=== PATIENT | male | born 1960 | race Caucasian/White ===

== ENCOUNTER 2018-09-15 08:31 | Outpatient (REF) | payer BC, SELFPAY ==
[2018-09-15 14:12] LABS: Anion Gap 13.1 mmol/L (3-11); BUN 15 mg/dL (7-18); CO2 23.9 mmol/L (21.0-32.0); CREATININE 0.87 mg/dL (0.70-1.30); Calcium 9.2 mg/dL (8.5-10.1); Chloride 101 mmol/L (98-107); Glucose 114 mg/dL (70-100); Potassium 4.1 mmol/L (3.5-5.1); Sodium 138 mmol/L (136-145); Vitamin B12 426 pg/mL (193-986)
== END 2018-09-15 08:51 ==
LOC: NCHCN 08:31
PROVIDERS: PCP Family Medicine; Visit Provider Family Medicine
DX: I10 Essential (primary) hypertension (principal); D75.89 Other specified diseases of blood and blood-forming organs
CPT/HCPCS: 80048; 82607

== ENCOUNTER 2019-03-27 15:38 | Inpatient (IN) | payer BC, SELFPAY ==
[2019-03-27 15:41] VITALS: BP 130/68; PULSE 83; RESP 16; TEMP 37.1; O2SAT 100
--- NOTE | 2019-03-27 16:10 | ED.GENADUL_ITS ---
Discharge Plan Disposition Patient Disposition: [facility] Condition: Good Discharge Details Chief Complaint: Cellulitis Clinical Impression: Olecranon bursitis, right elbow, Cellulitis of right elbow Admit Date/Time: 03/27/19 17:37 Admit Provider: Reece Bagley Attending Provider: Reece Bagley Primary Care Provider: Severo King ED Provider: Isai Field Discharge Data Discharge Date/Time-TO BE ENTERED AT DEPARTURE: 03/27/19 17:58 Medical Decision Making This is a 59-year-old male who presents today for swelling redness and pain in his right elbow. 2 weeks ago the patient fell and hit his right elbow, he had a mild scrape/abrasion at that time, but his symptoms were otherwise notably unremarkable. 4 to 5 days ago he developed redness and drainage at the elbow itself where the scrape was before, he was initially given Keflex and then with no improvement from this he was switched to clindamycin. He has been on this for 2 days and has had notable worsening of his symptoms, including wor sening swelling redness and drainage. He has had a fever for the last 3 days. Pain is present with movement. Physical exam demonstrates notably edematous elbow, but certainly no significant fluctuance. I suspect that the patient initially had olecranon bursitis, which is now transitioned into a mild to moderate cellulitis. Currently he is afebrile and heart rate is normal, he does not show demonstration of significant septic joint. However with the notable spreading of the redness and worsening even with antibiotics I do feel that he could certainly transition to this point fairly quickly. Feel he demonstrates failed outpatient therapy and demonstrates medical indication for inpatient IV management. We will get an x-ray to rule out atypical osteo-versus fracture. We will get laboratory work-up start vancomycin get fluids. Of note patient was sent in by Dr. kenney. Hospitalist has been contacted already by Dr. kenney however it was requested that the patient be evaluated here in the ED first. I feel that this is very reasonable. We will contact the hospitalist and orthopedics once her work-up is complete. 6:08 PM The patient continues to remain stable here in the ED. Laboratory work-up shows a normal white count, ESR is notably elevated at 97, CRP is also notably elevated at 12.6. He remains afebrile here in the ED though. Vancomycin has been going. X-ray shows no acute process however there is a atypical linear opacity seems to be stemming from the joint of the proximal ulna. No evidence of periosteal disruption though. Virtual radiology reads no acute fracture. Portable limited bedside ultrasound demonstrates no evidence of significant fluid pocket that could easily be assessed or drained at this time. We will hold off on any aspiration at this time. I feel the patient likely had initial olecranon bursitis, which she either secondary to trauma or other superficial small infection has now led to both an infected olecranon bursitis, in conjunc tion with a superficial notable cellulitis. Although he is not currently demonstrating evidence of a purely septic joint, I do feel that he requires admission and IV antibiotics with his notable failed outpatient therapy. Did contact the orthopedic surgeon Dr. Landeros, discussed the case and plan with him. He agrees with the current assessment and plan. Did contact the hospitalist and discussed the case with Dr. Bagley, he agrees the assessment and plan. I have extensively reviewed the treatment plan with the patient. I have addressed all patient concerns at this time. I have also discussed the plan with the admitting physician and they agree with the current assessment and plan and have agreed to assume responsibility for the patient. All parties demonstrate verbal understanding and agreement with our assessment and plan at this time. FINDINGS: Bones/joints: Normal. Soft tissues: Dorsal soft tissue swelling. IMPRESSION: Dorsal soft tissue swelling. Dictated and Authenticated by: Homero Rhoades MD. Ordering:JULISSA Alex MD HPI General Date/Time Provider Initiated Documentation: 03/27/19 15:51 . HPI Narrative: This is a 5-year-old male with past medical history of hypertension, who presents today for evaluation of right elbow pain swelling and fever. 2 weeks ago the patient slipped, fell, and hit his right elbow. He did have a mild scrape on his elbow at that time, and did develop very minimal swelling, however there was no other significant abnormalities and the symptoms are notably benign. However 4 to 5 days ago the patient developed redness, increased swelling and mild drainage which she describes as initially yellow, wh ich then developed into a milky yellow substance. He went to the local [facility], where he was initially prescribed Keflex, and reassess within 48 hours with no improvement and then transitioned to clindamycin. He has been on this for 2 days now and notes continued worsening of the symptoms. He has worsening redness swelling and pain. Additionally he has continued drainage. Patient also has had a fever for the last 3 days. His temperature has ranged from 100-102. It is improved with NSAIDs. Patient denies any history of diabetes, previous illness like this, or other complaint. Pain is rated worse with movement. Improved by nothing. Related Data Home Medications Medication Instructions Recorded Confirmed amlodipine 5 mg PO DAILY tab-cap 11/06/13 03/27/19 epinephrine 0.3 mg IM PRN PRN 11/06/13 03/27/19 multivitamin [Multi Vitamin Daily] 1 ea PO DAILY 11/06/13 03/27/19 losartan 50 mg-hydrochlorothiazide 1 tab PO DAILY 07/25/18 03/27/19 12.5 mg tablet acamprosate 333 mg tablet,delayed 333 mg PO TID 03/14/19 03/27/19 release clindamycin HCl 450 mg PO TID 03/27/19 03/27/19 ibuprofen [IBU-200] 400 mg PO Q6H PRN 03/27/19 03/27/19 Allergies Allergy/AdvReac Type Severity Reaction Status Date / Time JOSE Inhibitors Allergy Mild unknown Verified 03/27/19 15:49 BEE STINGS Allergy Severe Anaphylaxsi Uncoded 03/27/19 15:49 s General Stated Complaint: Cellulitis ARGENIS: 3 Review of Systems All systems reviewed & are unremarkable except as noted in HPI and below PFSH Social History Smoking/Tobacco Use Status: Never Alcohol Intake: former Drug use: Never Do you feel safe at home: Yes Do you feel safe in your relationship?: Yes Exam Narrative Exam Narrative: 1.Const: Well-nourished, Well-developed, appearing stated age 2.Eyes: PERRL, no conjunctival injection, and symmetrical lids. 3.ENT: Atraumatic external nose and ears. Moist MM. Neck: Symmetric, trachea midline, No thyromegaly. 4.CVS: +S1/S2, No murmurs or gallops. Peripheral pulses 2+ and equal in all extremities. Brisk capillary refill in all extremities. 5.RESP: Unlabored respiratory effort. Clear to auscultation bilaterally. No wheezes rales or rhonchi 6.GI: Soft, Nontender/Nondistended, No hepatosplenomegaly. No guarding or jameson ound. 7.MSK: Right upper extremity demonstrates notably swollen and edematous right elbow, minimal fluctuance, more notable edematous tissue. Notable redness around the elbow, especially on the posterior dorsal aspect. The erythema does come more circumferentially, and travels down his forearm and slightly proximally up his humerus roughly 1 to 2 inches from the elbow. There is evidence of an actively draining eschar over the elbow itself. Mild pain with movement, but not pain out of proportion. Radial pulse was 2 bilaterally, brisk capillary refill, normal sensation throughout. 8.Skin: Please see musculoskeletal. 9.Neuro: database marketing manager II-XII grossly intact. Sensation grossly intact, no focal neurologic deficits. 10.Psych: (AAO) x3. Appropriate mood and affect Course Vital Signs Vital signs: Vital Signs Temperature 37.1 C 03/27/19 15:41 Pulse 83 03/27/19 15:41 Respiratory Rate 16 03/27/19 15:41 Blood Pressure 130/68 03/27/19 15:41 Pulse Oximetry 100 03/27/19 15:41 Temperature 37.1 C 03/27/19 15:41 Temperature Source Oral 03/27/19 15:41 Pulse 83 03/27/19 15:41 Respiratory Rate 16 03/27/19 15:41 Respiratory Effort Non-Labored 03/27/19 15:47 Blood Pressure 130/68 03/27/19 15:41 Blood Pressure Position Sitting 03/27/19 15:41 Pulse Oximetry 100 03/27/19 15:41 Oxygen Delivery Method Room Air 03/27/19 15:41 Oxygen Flow Rate 0 03/27/19 15:41 Lab/Test Results Lab/Test Results: 03/27/19 15:51 Blood Blood Culture - Pending 03/27/19 15:51 Blood Blood Culture - Pending
--- NOTE | 2019-03-27 16:35 | DI.RAD_ITS ---
EXAM: XR ELBOW RT COMPLETE INDICATION: fall, swelling, cellulitis, r/o fracture. COMPARISON: No exams were available for comparison TECHNIQUE: 2D digital imaging was performed. FINDINGS: On the lateral view there is a lucency seen in the anterior aspect of the radial head. This may repr esent a nondisplaced fracture. No other fracture or dislocation is seen. There is soft tissue swell ing about the elbow particularly posteriorly. IMPRESSION: Short lucency in the cortex of the radial head seen on the lateral view. This may represent a nondis placed fracture. Follow-up recommended. The findings were discussed with Dr. Villalobos of the emergency department on 03/28/2019
[2019-03-27 16:36] LABS: Abs Immature Grans 0.03 k/cumm (0.0-0.09); Absolute Basophil Count 0.02 k/cumm (0.0-0.2); Absolute Eosinophil Count 0.12 k/cumm (0.0-0.7); Absolute Monocyte Count 0.92 k/cumm (0.11-0.7); Basophils % 0.2; Eosinophils % 1.3; HCT 37.2 % (40.0-50.0); HGB 12.4 g/dL (13.5-17.5); Immature Grans % 0.3; Lymphocytes % 17.2; Mean Corp. HGB Concentration 33.3 g/dL (32.0-36.0); Mean Corpuscular Hemoglobin 32.4 pg (27.0-33.0); Mean Corpuscular Volume 97.1 fL (80-95); Mean Platelet Volume 10.4 fL (8.0-11.0); Monocytes % 9.9; Neutrophils % 71.1; Platelet Count 304 x1000/uL (130-400); RBC 3.83 m/cumm (4.50-6.00); RBC Distribution Width 12.2 % (11.8-14.1); White Blood Cell Count 9.29 k/cumm (4.4-10.8)
[2019-03-27] MEDS: VANCOMYCIN 2,000 MG in Normal Saline 500 ML 333.3333 MG IVPB (16:59)
[2019-03-27] MEDS: Normal Saline 1,000 ML 150 ML IV (16:59)
[2019-03-27 17:06] LABS: ALT 39 U/L (16-63); AST 22 U/L (15-37); Albumin 3.5 g/dL (3.4-5.0); Alkaline Phosphatase 62 U/L (46-116); Anion Gap 8.5 mmol/L (3-11); BUN 9 mg/dL (7-18); Bilirubin, Total 0.7 mg/dL (0.2-1.0); C-Reactive Protein 12.63 mg/dL (0.0-0.3); CO2 28.5 mmol/L (21.0-32.0); CREATININE 0.77 mg/dL (0.70-1.30); Calcium 9.1 mg/dL (8.5-10.1); Chloride 100 mmol/L (98-107); Glucose 84 mg/dL (74-106); Potassium 3.4 mmol/L (3.5-5.1); Sodium 137 mmol/L (136-145); Total Protein 7.9 g/dL (6.4-8.2)
--- NOTE | 2019-03-27 17:21 | DI.VRAD_ITS ---
PROCEDURE INFORMATION: Exam: XR Right Elbow Exam date and time: 03/27/2019 4:38 PM Age: 59 years old Clinical indication: Injury or trauma; Fall; Initial encounter; Blunt trauma (contusions or hematomas; Elbow; Right TECHNIQUE: Imaging protocol: XR Right elbow. Views: 3 or more views. COMPARISON: No relevant prior studies available. FINDINGS: Bones/joints: Normal. Soft tissues: Dorsal soft tissue swelling. IMPRESSION: Dorsal soft tissue swelling. Dictated and Authenticated by: Homero hRoades MD. Ordering:JULISSA Alex MD
[2019-03-27 17:37] LABS: ESR 97 mm/hr (1-20)
[2019-03-27 17:58] VITALS: BP 136/73; PULSE 90; RESP 16; TEMP 36.5; O2SAT 100
[2019-03-27 18:02] VITALS: BP 136/76; PULSE 82; RESP 16; TEMP 36.7; O2SAT 97
[2019-03-27] MEDS: Potassium Chloride 20 MEQ TABCR 40 MEQ PO (18:36)
[2019-03-27] MEDS: Enoxaparin 40 MG/0.4 ML SYR SC (18:57)
[2019-03-27 20:15] VITALS: BP 123/70; PULSE 82; RESP 16; TEMP 37.1; O2SAT 96
--- NOTE | 2019-03-27 20:34 | HPE_ITS ---
Date of service: 03/27/19 Time of Service: 20:34 Assessment and Plan Assessment and plan (1) Cellulitis of right elbow: Status: Acute Assessment and plan: Continue oxacillin for both staph and strep coverage. Continue NSAID analgesic for pain. Modify antibiotic choices based on wound and blood cultures. Consult with orthopedic surgery in the morning for probable incision and drainage (2) Infected olecranon bursa: Status: Suspected Assessment and plan: As above Qualifiers: Laterality: right Qualified Code(s): M71.121 - Other infective bursitis, right elbow (3) Hypertension: Status: Chronic Assessment and plan: Continue home blood pressure medications including amlodipine and losartan with HCTZ. Replace his potassium with oral supplementation. Qualifiers: Hypertension type: essential hypertension Qualified Code(s): I10 - Essential (primary) hypertension History of Present Illness History of Present Illness Chief Complaint: Cellulitis right elbow Narrative: 59-year-old male with a history of hypertension presents the emergency department with pain and swelling and redness and drainage from the right elbow. Patient states that he had a fall about 2 weeks ago landed on asphalt causing an abrasion over his right elbow. He washed the wound and dressed it with topical antibiotic and Band-Aids. Beginning last March he noticed redness and swelling over the elbow and by Sunday, March 24, 2019 he was having an area of drainage of pus over the olecranon surface of the right el bow. On Wednesday when there was continued pain and swelling he went to the [facility] in [facility] where he was prescribed Keflex and told to return on March 26 for follow-up. At that time they gave him a course of IV antibiotics and put him on oral clindamycin and told him that if he was not better by Wednesday, March 27, 2019 he should either re-present to the [facility] or see his primary care doctor or go to the emergency room. Today he called Dr. King's office and was seen and sent to the emergency department. He has had fever and chills over Wednesday and Wednesday night into Wednesday morning. He says today his temperature was only up to 100 degrees and he said no chills today. He was seen in the emergency room by Dr. Field who did a work-up to include routine lab work including a CBC that not show a leukocytosis. White count was 9290. CRP is elevated at 12.63. ESR is elevated at 97. Rest of his chemistry was unremarkable except for potassium of 3.4 however the patient takes losartan HCTZ for his hypertension. X-ray of his right elbow demonstrates soft tissue swelling over the dorsum of the elbow with no bony abnormalities. Dr. Field obtain blood cultures and a superficial wound culture from the drainage. Patient has notable swelling and erythema around the elbow as well as the forearm and edema of his right hand. Dr. Field did a portable ultrasound and did not find any pocket of pus. His initial impression is that the patient had an olecranon bursitis which then became infected due to trauma. He discussed case with Dr. Landeros, orthopedic surgeon digital content coordinator. Patient is now admitted to the hospital for IV antibiotics and orthopedic consultation. After blood cultures and wound culture were obtained patient was started on vancomycin. I have switched him to oxacillin. Review of Systems Constitutional Constitutional: Reports chills and Reports fever(s) Eyes Eyes: Reports system reviewed and no additional complaints, except as docu ENT Ears, Nose, Mouth, and Throat: Reports system reviewed and no additional complaints, except as docu Cardiovascular Cardiovascular: Reports system reviewed and no additional complaints, except as docu Respiratory Respiratory: Reports system reviewed and no additional complaints, except as docu Gastrointestinal Gastrointestinal: Reports system reviewed and no additional complaints, except as docu Genitourinary Genitourinary: Reports system reviewed and no additional complaints, except as docu Musculoskeletal Musculoskeletal: Reports as per HPI Integumentary/Breasts Skin/Breast: Reports as per HPI Neurologic Neurologic: Reports system reviewed and no additional complaints, except as docu Psychiatric Psychiatric: Reports system reviewed and no additional complaints, except as docu Endocrine Endocrine: Reports system reviewed and no additional complaints, except as docu Hematologic/Lymphatic Hematologic/Lymphatic: Reports system reviewed and no additional complaints, except as docu Allergic/Immunologic Allergic/Immunologic: Reports system reviewed and no additional complaints, except as docu [facility] Medical History (Updated 03/27/19 @ 22:03 by Reece Bagley) Hypertension (Chronic) Iliotibial band syndrome, left leg (Acute) Osteoarthritis (Chronic) Trochanteric bursitis, left hip (Acute) Injection: 07/25/2018 Surgical History (Updated 03/27/19 @ 21:03 by Reece Bagley) H/O arthroscopy of left knee (Acute ~2015) torn meniscus; [facility] History of total left hip arthroplasty (Acute ~02/2017) [facility], [facility] Family History (Updated 03/27/19 @ 21:09 by Reece Bagley) Father Heart disease probable HI; no autopsy done Mother Breast cancer Sister Chronic kidney disease Social History (Updated 03/27/19 @ 21:07 by Reece Bagley) Smoking/Tobacco Use Status: Former Tobacco Use Quit Date: 04/05/94 Tobacco: How many years used: 20 Alcohol Intake: former Year quit: 2018 Drug use: Never Household members: spouse Number of Children: 2 Education Level: college Details: BA current occupation: public administration; [employer] What is your relationship status?: Panel score (0-1 are the most socially isolated patients): 1 Do you feel safe at home: Yes Do you feel safe in your relationship?: Yes Meds Home Medications and Allergies Home Medications Medication Instructions Recorded Confirmed Type amlodipine 5 mg PO DAILY tab-cap 11/06/13 03/27/19 History epinephrine 0.3 mg IM PRN PRN 11/06/13 03/27/19 History multivitamin [Multi Vitamin Daily] 1 ea PO DAILY 11/06/13 03/27/19 History losartan 50 mg-hydrochlorothiazide 1 tab PO DAILY 07/25/18 03/27/19 History 12.5 mg tablet acamprosate 333 mg tablet,delayed 333 mg PO TID 03/14/19 03/27/19 History release clindamycin HCl 450 mg PO TID 03/27/19 03/27/19 History ibuprofen [IBU-200] 400 mg PO Q6H PRN 03/27/19 03/27/19 History Allergies Allergy/AdvReac Type Severity Reaction Status Date / Time JOSE Inhibitors AdvReac Mild cough Verified 03/27/19 20:59 BEE STINGS Allergy Severe Anaphylaxsi Uncoded 03/27/19 15:49 s Exam Narrative Exam Narrative: Middle-aged male in no acute distress sitting up in the bed in semi-singh position. HEENT is unremarkable neck is supple without JVD normal carotid pulses no bruits Lungs are clear to auscultation. Heart is regular rate and rhythm without murmur rub or gallop. Abdomen soft and nontender without palpable masses organomegaly or bruits. Extremities right elbow is erythematous with an area of fluctuance over the olecranon surface. There is an abrasion with drainage of pus from this. He has some slight erythema and swelling just above the elbow. There is significant edema of the forearm and right hand. There is erythema extending just below the elbow. Neurovascular exam is intact with normal radial and ulnar pulses and normal sensation to light touch over the fingers and thumb. Results Imaging Additional studies: PROCEDURE INFORMATION: Exam: XR Right Elbow Exam date and time: 03/27/2019 4:38 PM FINDINGS: Bones/joints: Normal. Soft tissues: Dorsal soft tissue swelling. IMPRESSION: Dorsal soft tissue swelling. Dictated and Authenticated by: Homero Rhoades MD. Labs Result diagrams: 03/27/19 16:25 03/27/19 16:25 Labs: Laboratory Results - last 24 hr 03/27/19 03/27/19 16:25 16:25 WBC 9.29 RBC 3.83 L Hgb 12.4 L Hct 37.2 L MCV 97.1 H MCH 32.4 MCHC 33.3 RDW 12.2 Plt Count 304 MPV 10.4 Immature Gran % 0.3 Neutrophils % 71.1 Lymphocytes % 17.2 Monocytes % 9.9 Eosinophils % 1.3 Basophils % 0.2 Absolute Neutrophils 6.60 Absolute Lymphocytes 1.60 Absolute Monocytes 0.92 H Absolute Eosinophils 0.12 Absolute Basophils 0.02 ESR 97 H Sodium 137 Potassium 3.4 L Chloride 100 Carbon Dioxide 28.5 Anion Gap 8.5 BUN 9 Creatinine 0.77 Estimated GFR/1.73 m2 >= 60.00 Glucose 84 Calcium 9.1 Total Bilirubin 0.7 AST 22 ALT 39 Alkaline Phosphatase 62 C-Reactive Protein 12.63 H Total Protein 7.9 Albumin 3.5 Last Vital Signs Temp 36.7 C 03/27/19 18:02 Pulse 82 03/27/19 18:02 Resp 16 03/27/19 18:02 BP 136/76 03/27/19 18:02 Pulse Ox 97 03/27/19 18:02
[2019-03-27] MEDS: Acamprosate 333 MG TABCR PO (20:48)
[2019-03-27 23:30] VITALS: BP 113/68; PULSE 79; RESP 16; TEMP 36.8; O2SAT 97
[2019-03-28 06:53] LABS: Abs Immature Grans 0.02 k/cumm (0.0-0.09); Absolute Basophil Count 0.03 k/cumm (0.0-0.2); Absolute Eosinophil Count 0.25 k/cumm (0.0-0.7); Absolute Lymphocyte Count 1.36 k/cumm (1.2-3.4); Absolute Monocyte Count 0.63 k/cumm (0.11-0.7); Absolute Neutrophil Count 3.39 k/cumm (1.2-6.7); Basophils % 0.5; Eosinophils % 4.4; HCT 36.7 % (40.0-50.0); HGB 12.1 g/dL (13.5-17.5); Immature Grans % 0.4; Lymphocytes % 23.9; Mean Corpuscular Hemoglobin 32.4 pg (27.0-33.0); Mean Corpuscular Volume 98.1 fL (80-95); Mean Platelet Volume 10.4 fL (8.0-11.0); Monocytes % 11.1; Neutrophils % 59.7; Platelet Count 301 x1000/uL (130-400); RBC 3.74 m/cumm (4.50-6.00); RBC Distribution Width 12.3 % (11.8-14.1); White Blood Cell Count 5.68 k/cumm (4.4-10.8)
[2019-03-28 07:05] LABS: Anion Gap 7.9 mmol/L (3-11); BUN 7 mg/dL (7-18); C-Reactive Protein 8.77 mg/dL (0.0-0.3); CO2 26.1 mmol/L (21.0-32.0); CREATININE 0.75 mg/dL (0.70-1.30); Calcium 8.7 mg/dL (8.5-10.1); Chloride 106 mmol/L (98-107); Glucose 95 mg/dL (74-106); Potassium 4.1 mmol/L (3.5-5.1); Sodium 140 mmol/L (136-145)
[2019-03-28] MEDS: Normal Saline Flush 10 ML SYR ×2 (08:31→12:26)
[2019-03-28] MEDS: Losartan 50 MG TAB PO (08:31)
[2019-03-28] MEDS: hydroCHLOROthiazide 12.5 MG TAB PO (08:31)
[2019-03-28] MEDS: Multivitamin TAB 1 TAB PO (08:31)
[2019-03-28] MEDS: amLODIPine 5 MG TAB PO (08:32)
[2019-03-28] MEDS: Acamprosate 333 MG TABCR PO ×3 (08:32→20:18)
[2019-03-28] MEDS: Potassium Chloride 20 MEQ TABCR PO (08:32)
[2019-03-28 08:48] LABS: Creatine Kinase 90 U/L (39-308)
[2019-03-28 08:54] LABS: ESR 88 mm/hr (1-20)
[2019-03-28 08:55] VITALS: BP 144/79; PULSE 75; RESP 20; TEMP 36.6; O2SAT 99
[2019-03-28 08:58] LABS: Procalcitonin < 0.1 ng/mL
--- NOTE | 2019-03-28 10:31 | W.ORTHOCONSU ---
Date of service: 03/28/19 Time of Service: 10:31 History of Present Illness History of Present Illness Chief Complaint: Painful,swollen, draining R elbow Narrative: There is a 59-year-old white male with no major medical problems who presents with a painful draining swollen right elbow. He was admitted to the emergency room last night. His history was 2 weeks ago he had a fall on the point of his right elbow with an abrasion over the tip of his olecranon. Other than some minor soreness he had no problems until approximately 5 days ago. And redness over his olecranon bursa on the right. Shortly thereafter it began draining. He went to the [facility] in [place] on 03/23/2019 for evaluation. He was started on Keflex and told to return within 48 hours if he does not improve. He did not improve and went back to the [facility] where he received IV antibiotics followed by oral clindamycin. He felt the swelling was getting worse and he was getting some streaking in his forearm. He therefore went to his PCP yesterday was sent to the emergency room. Patient was evaluated emergency room and felt to have an infected olecranon bursa with cellulitis of the right elbow and arm. I was called by the ER physician Dr. Field for my opinion over the phone. I agree with his treatment plan of admission with IV vancomycin. He was admitted by Dr. Bagley who switched him to oxacillin 2 g every 4 hours IV. I was formally consulted by Dr. Mcguire this morning, in anticipation of having to take this patient to the OR for an I&D. Mr. Tillman says he is feeling much better today. Pain is really minimal. He has had some drainage from the point of his elbow. He feels a swelling in the forearm has decreased significantly. Denies any chills or fevers. Consults Consult date: 03/28/19 Requesting physician: Velvet Mcguire Assessment and Plan Assessment and plan (1) Infected olecranon bursa: Status: Suspected Assessment and plan: Assessment: Infected olecranon bursa on the right that has shown a dramatic and rapid response to IV antibiotics. Confusion arises because I am not sure whether the response was to the IV vancomycin in the emergency room or the 2 doses of IV oxacillin he received subsequently. His bursa is already draining and therefore decompressed. I do not see any surgical indication for formal I&D at this time. I have discussed this with Dr. Mcguire and we decided to continue with IV oxacillin and hold off on restarting vancomycin for now. Should he deteriorate he may have to go back on IV vancomycin. Also if blood cultures were positive for MRSA would have to switch to vancomycin. Basing treatment on culture of the drainage is sketchy at best because of the reported unreliability of these cultures. Would rather go by his clinical response to treatment. I think if he continues to show improvement through tomorrow could consider sending him home on oral dicloxacillin as further treatment. Would probably need 10 days of additional oral treatment. Plan: Continue on IV oxacillin 2 g every 4 hours. If he continues to improve through tomorrow could consider sending him home on p.o. dicloxacillin for 10 days. I would recommend 1 g p.o. every 6 hours for 10 days. If his condition should deteriorate, would recommend putting him back on vancomycin and reconsulting orthopedics for possible I&D. If his blood cultures are positive for MRSA, would also recommend switching back to vancomycin. Thanks for the consult. Qualifiers: Laterality: right Qualified Code(s): M71.121 - Other infective bursitis, right elbow [facility] Medical History (Updated 03/27/19 @ 22:03 by Reece Bagley) Hypertension (Chronic) Iliotibial band syndrome, left leg (Acute) Osteoarthritis (Chronic) Trochanteric bursitis, left hip (Acute) Injection: 07/25/2018 Surgical History (Updated 03/27/19 @ 21:03 by Reece Bagley) H/O arthroscopy of left knee (Acute ~2015) torn meniscus; [facility] History of total left hip [place] [facility] [place] [facility] Family History (Updated 03/27/19 @ 21:09 by Reece Bagley) Father Heart disease probable [place]; no autopsy done Mother Breast cancer Sister Chronic kidney disease Social History (Updated 03/27/19 @ 21:07 by Reece Bagley) Smoking/Tobacco Use Status: Former Tobacco Use Quit Date: 04/05/94 Tobacco: How many years used: 20 Alcohol Intake: former Year quit: 2018 Drug use: Never Household members: spouse Number of Children: 2 Education Level: college Details: BA current occupation: public administration; [employer] What is your relationship status?: Panel score (0-1 are the most socially isolated patients): 1 Do you feel safe at home: Yes Do you feel safe in your relationship?: Yes Exam Narrative Exam Narrative: Today demonstrates full flexion and extension of the right elbow along with full pronation and supination actively without pain. When he approaches end range flexion a drop or 2 of samantha pus is expressed from a break in the skin at the point of the elbow. The olecranon bursa is mildly swollen. It is erythematous. There is no streaking in the right upper extremity. Forearm is not swollen. Neurovascular examination of the right hand is completely normal today. He has some mild local discomfort with palpation over the swollen olecranon bursa. AP lateral oblique x-rays of the right elbow are reviewed. I do not see any fractures. No posterior fat-pad sign is seen. No evidence of osteomyelitis. His CRP is dropped from 12.63 yesterday afternoon to 8.77 this morning. His white blood cell count is decreased from 9290 yesterday afternoon to 5680 this morning. Polymorphonucleocytes have dropped from 71% to 60%. Even the ESR has dropped from 97 mm/h to 88 mm/h. Procalcitonin was normal. He has remained afebrile throughout his hospital stay from 2 PM yesterday to 9 AM today. Blood cultures are pending. Culture of the drainage shows numerous gram-positive cocci. Results Last Vital Signs Temp 36.6 C 03/28/19 08:55 Pulse 75 03/28/19 08:55 Resp 20 03/28/19 08:55 BP 144/79 H 03/28/19 08:55 Pulse Ox 99 03/28/19 08:55 Labs Result diagrams: 03/28/19 06:30 03/28/19 06:30 Labs: Laboratory Results - last 24 hr 03/27/19 03/27/19 03/27/19 16:25 16:25 20:20 WBC 9.29 RBC 3.83 L Hgb 12.4 L Hct 37.2 L MCV 97.1 H MCH 32.4 MCHC 33.3 RDW 12.2 Plt Count 304 MPV 10.4 Immature Gran % 0.3 Neutrophils % 71.1 Lymphocytes % 17.2 Monocytes % 9.9 Eosinophils % 1.3 Basophils % 0.2 Absolute Neutrophils 6.60 Absolute Lymphocytes 1.60 Absolute Monocytes 0.92 H Absolute Eosinophils 0.12 Absolute Basophils 0.02 ESR 97 H Sodium 137 Potassium 3.4 L Chloride 100 Carbon Dioxide 28.5 Anion Gap 8.5 BUN 9 Creatinine 0.77 Estimated GFR/1.73 m2 >= 60.00 Glucose 84 Calcium 9.1 Magnesium 2.0 Total Bilirubin 0.7 AST 22 ALT 39 Alkaline Phosphatase 62 Creatine Kinase C-Reactive Protein 12.63 H Total Protein 7.9 Albumin 3.5 Procalcitonin 03/28/19 03/28/19 03/28/19 06:30 06:30 06:30 WBC 5.68 D RBC 3.74 L Hgb 12.1 L Hct 36.7 L MCV 98.1 H MCH 32.4 MCHC 33.0 RDW 12.3 Plt Count 301 MPV 10.4 Immature Gran % 0.4 Neutrophils % 59.7 Lymphocytes % 23.9 Monocytes % 11.1 Eosinophils % 4.4 Basophils % 0.5 Absolute Neutrophils 3.39 Absolute Lymphocytes 1.36 Absolute Monocytes 0.63 Absolute Eosinophils 0.25 Absolute Basophils 0.03 ESR 88 H Sodium 140 Potassium 4.1 D Chloride 106 Carbon Dioxide 26.1 Anion Gap 7.9 BUN 7 Creatinine 0.75 Estimated GFR/1.73 m2 >= 60.00 Glucose 95 Calcium 8.7 Magnesium Total Bilirubin AST ALT Alkaline Phosphatase Creatine Kinase C-Reactive Protein 8.77 H Total Protein Albumin Procalcitonin < 0.1 03/28/19 06:30 WBC RBC Hgb Hct MCV MCH MCHC RDW Plt Count MPV Immature Gran % Neutrophils % Lymphocytes % Monocytes % Eosinophils % Basophils % Absolute Neutrophils Absolute Lymphocytes Absolute Monocytes Absolute Eosinophils Absolute Basophils ESR Sodium Potassium Chloride Carbon Dioxide Anion Gap BUN Creatinine Estimated GFR/1.73 m2 Glucose Calcium Magnesium Total Bilirubin AST ALT Alkaline Phosphatase Creatine Kinase 90 C-Reactive Protein Total Protein Albumin Procalcitonin
--- NOTE | 2019-03-28 10:53 | W.NUTCONSULT ---
Date of service: 03/28/19 Time of Service: 10:53 Nutritional Consult ASSESSMENT: 59 year old male with infected olecranon. PMH: OA, HTN, alcohol use, impaired fasting glucose. Following regular meal plan with adequate intake. BMI indicates class 1 obesity. Not considered at nutritional risk at this time. MONITORING AND EVALUATION: will monitor weight and po intake trends. Time Spent in Nutritional Counseling and Treatment: 0 time spent face to face
--- NOTE | 2019-03-28 11:02 | PHARADMIT ---
Addendum entered by Phylicia Fink 03/30/19 16:08: Pharmacy Note Subjective continues to improve Objective VS okay labs okay Assessment oxacillin continues (day 4 starts this evening) no med changes Plan possible discharge tomorrow Original Note: Admission Pharmacy Clinical Review CELLULITIS RIGHT ELBOW Code Status Full Code Current Weight Wgt-102.8 kg Renally Cleared and Narrow Therapeutic Index Meds CrCl~ 101 mL/min Meds-OK QTc Value / Action Taken NONE BP Control, Fever BP- 144/79 Tmax-36.8C Electrolytes reviewed Na-140 K+4.1 Mag-2.0 DVT Prophylaxis Lovenox 40mg Opiate Usage / Scheduled Bowel Regimen Ordered No Yes Plt/SCr for Heparin / Enoxaparin Plts- 301 SCr-0.75 INR for Warfarin na H/H stable, WBC/Bands H&H- 12.1/36.7 WBC-5.68 Antibiotic appropriateness Oxacillin, (Vancomycin in ER) Cultures and Sensitivities Wound-Gram (+) Blood-Pending Surgical ABX d/c within 24 hr na DM control / Insulin Dosing BG- 95 Heart Failure (Check EF%) (JOSE's, B-Block, Diuretics) Norvasc, Losartan, HCTZ IV to PO Switch No Home Meds Reviewed Yes Home Meds Not Ordered Clindamycin, Ibuprofen, EpiPen Comments RCRP-8.77 E;BOW is draining no simon for surgical debridement
--- NOTE | 2019-03-28 16:10 | W.PM.PROGNOT ---
Date of Service Date of service: 03/28/19 Time of Service: 16:10 Assessment and Plan Assessment and plan (1) Infected olecranon bursa: Status: Acute Assessment and plan: Improving on oxacillin. Failed outpatient therapy. Seen by orthopedic - no surgical intervention is anticipated. Wound culture with gram positive alexis. Will await speciation/sensitivities. I anticipate that the patient will need at least 72 hours of antibiotics. Qualifiers: Laterality: right Qualified Code(s): M71.121 - Other infective bursitis, right elbow (2) Cellulitis of right elbow: Status: Acute Assessment and plan: As above (3) Hypertension: Status: Chronic Assessment and plan: Continue amlodipine, HCTZ, losartan Qualifiers: Hypertension type: essential hypertension Qualified Code(s): I10 - Essential (primary) hypertension (4) Impaired fasting glucose: Status: Chronic Assessment and plan: Change diet to carb consistent heart healthy (5) DVT prophylaxis: Status: Acute Assessment and plan: lovenox (6) Discharge planning issues: Status: Acute Assessment and plan: full code Subjective Subjective Patient reports: no new complaints Interval history since last seen: Mr Tillman states he is feeling better. He states his right arm feels a lot better, less swollen. Denies dizziness, chest pain,shortness of breath, nausea, vomiting. No surgical intervention was recommended in orthopedic consultation. Exam Narrative Exam Narrative: General: Very pleasant middle-aged male, A&Ox3, sitting comfortably in a chair HEENT: EOMI, MMM Heart: RRR, no m/r/g Lungs: CTAB Abdomen: soft, nontender, nondistended Extremities: no e/c/c BLE's; RUE with erythematous elbow with an opening/whitish drainage. Objective Objective Clinical Data: Abnormal lab results 03/27/19 03/27/19 03/28/19 Range/Units 16:25 16:25 06:30 RBC 3.83 L (4.50-6.00) m/cumm Hgb 12.4 L (13.5-17.5) g/dL Hct 37.2 L (40.0-50.0) % MCV 97.1 H (80-95) fL Absolute Monocytes 0.92 H (0.11-0.7) k/cumm ESR 97 H (1-20) mm/hr Potassium 3.4 L (3.5-5.1) mmol/L C-Reactive Protein 12.63 H 8.77 H (0.0-0.3) mg/dL 03/28/19 Range/Units 06:30 RBC 3.74 L (4.50-6.00) m/cumm Hgb 12.1 L (13.5-17.5) g/dL Hct 36.7 L (40.0-50.0) % MCV 98.1 H (80-95) fL Absolute Monocytes (0.11-0.7) k/cumm ESR 88 H (1-20) mm/hr Potassium (3.5-5.1) mmol/L C-Reactive Protein (0.0-0.3) mg/dL Vital Signs Temperature 36.6 C 03/28/19 08:55 Temperature Source Temporal Artery Scan 03/28/19 08:55 Pulse 75 03/28/19 08:55 Pulse Rhythm Regular 03/28/19 11:12 Respiratory Rate 20 03/28/19 08:55 Respiratory Effort Non-Labored 03/28/19 11:12 Respiratory Depth Normal 03/28/19 11:12 Respiratory Pattern Normal 03/28/19 11:12 Blood Pressure 144/79 H 03/28/19 08:55 Blood Pressure Position Sitting 03/27/19 15:41 Pulse Oximetry 99 03/28/19 08:55 Oxygen Delivery Method Room Air 03/28/19 08:55 Oxygen Flow Rate 0 03/28/19 08:55 Pain Level 2 03/28/19 08:55 Intake & Output 03/27/19 03/28/19 03/28/19 23:59 11:59 23:59 Intake Total 1770 / 1770 670 / 960 290 / 960 Balance 1770 / 1770 670 / 960 290 / 960 Weight 103 kg 102.8 kg Intake: IV 1070 / 1070 670 / 720 50 / 720 Oral 700 / 700 240 / 240 Other: Urine Appearance Clear Comment pt voiding ad jong in toilet at this time; urine not assessed. pt denies GI/ issues Voiding Methods Toilet Toilet Laboratory Results WBC 5.68 k/cumm (4.4-10.8) D 03/28/19 06:30 RBC 3.74 m/cumm (4.50-6.00) L 03/28/19 06:30 Hgb 12.1 g/dL (13.5-17.5) L 03/28/19 06:30 Hct 36.7 % (40.0-50.0) L 03/28/19 06:30 MCV 98.1 fL (80-95) H 03/28/19 06:30 MCH 32.4 pg (27.0-33.0) 03/28/19 06:30 MCHC 33.0 g/dL (32.0-36.0) 03/28/19 06:30 RDW 12.3 % (11.8-14.1) 03/28/19 06:30 Plt Count 301 x1000/uL (130-400) 03/28/19 06:30 MPV 10.4 fL (8.0-11.0) 03/28/19 06:30 Immature Gran % 0.4 03/28/19 06:30 Neutrophils % 59.7 03/28/19 06:30 Lymphocytes % 23.9 03/28/19 06:30 Monocytes % 11.1 03/28/19 06:30 Eosinophils % 4.4 03/28/19 06:30 Basophils % 0.5 03/28/19 06:30 Absolute Neutrophils 3.39 k/cumm (1.2-6.7) 03/28/19 06:30 Absolute Lymphocytes 1.36 k/cumm (1.2-3.4) 03/28/19 06:30 Absolute Monocytes 0.63 k/cumm (0.11-0.7) 03/28/19 06:30 Absolute Eosinophils 0.25 k/cumm (0.0-0.7) 03/28/19 06:30 Absolute Basophils 0.03 k/cumm (0.0-0.2) 03/28/19 06:30 ESR 88 mm/hr (1-20) H 03/28/19 06:30 Sodium 140 mmol/L (136-145) 03/28/19 06:30 Potassium 4.1 mmol/L (3.5-5.1) D 03/28/19 06:30 Chloride 106 mmol/L (98-107) 03/28/19 06:30 Carbon Dioxide 26.1 mmol/L (21.0-32.0) 03/28/19 06:30 Anion Gap 7.9 mmol/L (3-11) 03/28/19 06:30 BUN 7 mg/dL (7-18) 03/28/19 06:30 Creatinine 0.75 mg/dL (0.70-1.30) 03/28/19 06:30 Estimated GFR/1.73 m2 >= 60.00 (mL/min/1.73m2) 03/28/19 06:30 Glucose 95 mg/dL (74-106) 03/28/19 06:30 Calcium 8.7 mg/dL (8.5-10.1) 03/28/19 06:30 Magnesium 2.0 mg/dL (1.8-2.4) 03/27/19 20:20 Total Bilirubin 0.7 mg/dL (0.2-1.0) 03/27/19 16:25 AST 22 U/L (15-37) 03/27/19 16:25 ALT 39 U/L (16-63) 03/27/19 16:25 Alkaline Phosphatase 62 U/L (46-116) 03/27/19 16:25 Creatine Kinase 90 U/L (39-308) 03/28/19 06:30 C-Reactive Protein 8.77 mg/dL (0.0-0.3) H 03/28/19 06:30 Total Protein 7.9 g/dL (6.4-8.2) 03/27/19 16:25 Albumin 3.5 g/dL (3.4-5.0) 03/27/19 16:25 Procalcitonin < 0.1 ng/mL 03/28/19 06:30
[2019-03-28 16:40] VITALS: BP 139/74; PULSE 72; RESP 18; TEMP 37; O2SAT 99
--- NOTE | 2019-03-28 16:41 | PDOC.CMIN ---
Care Management Initial Assess REASON FOR HOSPITALIZATION:: Cellulitis RT Elbow PAST MEDICAL HISTORY/PAST SURGICAL HISTORY:: Alcohol use, OA, infected olecranon, impaired fasting glucose, Hypertension, iliotibial band syndrome left leg, osteoarthritis, trachanteric burstitis left hip, L TKA, L HUBERT PREVIOUS FUNCTIONAL STATUS/SOCIAL/FAMILY SUPPORTS:: Ochoa resides in [place], [place] with his , Melissa. He is independent at baseline in the community with all ADLs. CURRENT FUNCTIONAL STATUS:: Ochoa is unavailable throughout the day. ADVANCE DIRECTIVES:: None on file. Has patient been provided with information about the portal?: Yes Did the patient sign up for the portal?: Yes (Previously) CODE STATUS:: Full Code INSURANCE COVERAGE / FINANCIAL ISSUES:: BC/BS CURRENT HOME/COMMUNITY SERVICES/EQUIPMENT:: No current services or equipment. PRIMARY CARE PHYSICIAN:: Severo King MD. POTENTIAL DISCHARGE NEEDS:: Surgical consult; no intervention anticipated. Awaiting sensitivities to determine frequency and duration of needed ABX to treat cellulitis. PATIENT/FAMILY EDUCATION NEEDS:: Review discharge instructions, discuss Ask Me Three. ANTICIPATED BARRIERS TO DISCHARGE:: Awaiting sensitivities to determine frequency and duration of needed ABX to treat cellulitis. TRANSPORTATION:: Via private vehicle with his . PLAN:: Per MD: awaiting sensitivities to determine frequency and duration of needed ABX to treat cellulitis. CM will continue to follow and support discharge planning considerations.
[2019-03-28] MEDS: Lactobacillus Acidophilus CAP 1 CAP PO (16:48)
[2019-03-28] MEDS: Enoxaparin 40 MG/0.4 ML SYR SC (17:55)
[2019-03-28 20:31] VITALS: BP 117/75; PULSE 80; RESP 17; TEMP 37; O2SAT 96
--- NOTE | 2019-03-28 21:30 | W.PM.PROGNOT ---
Date of Service Date of service: 03/28/19 Time of Service: 21:30 Assessment and Plan Assessment and plan (1) Infected olecranon bursa: Status: Acute Assessment and plan: I think the weight of the evidence is that he is starting to respond and will continue antibiotics as is. Should there be clear deterioration, or plateau, would switch to Vanco. Qualifiers: Laterality: right Qualified Code(s): M71.121 - Other infective bursitis, right elbow Subjective Subjective Interval history since last seen: Called to assess elbow infection . Case reviewed. In with busitis/cellulitis right elbow. Failed outpatient therapy, admitted yesterday, single dose Vanco then oxacillin since. Reported to nursing that elbow felt tighter', but to me he is clear that overall he feels that he is improving. Cultures show only GPF. On exam he is afebrile, there is redness and swelling overlying olecranon bursa, with erythema fading peripherally, within the marked edges. Objective Objective Clinical Data: Abnormal lab results 03/28/19 03/28/19 Range/Units 06:30 06:30 RBC 3.74 L (4.50-6.00) m/cumm Hgb 12.1 L (13.5-17.5) g/dL Hct 36.7 L (40.0-50.0) % MCV 98.1 H (80-95) fL ESR 88 H (1-20) mm/hr C-Reactive Protein 8.77 H (0.0-0.3) mg/dL Vital Signs Temperature 37.0 C 03/28/19 20:31 Temperature Source Tympanic 03/28/19 20:31 Pulse 80 03/28/19 20:31 Pulse Rhythm Regular 03/28/19 15:20 Respiratory Rate 17 03/28/19 20:31 Respiratory Effort 03/28/19 15:20 Respiratory Depth Normal 03/28/19 15:20 Respiratory Pattern Normal 03/28/19 15:20 Blood Pressure 117/75 03/28/19 20:31 Blood Pressure Position Sitting 03/27/19 15:41 Pulse Oximetry 96 03/28/19 20:31 Oxygen Delivery Method Room Air 03/28/19 20:31 Oxygen Flow Rate 0 03/28/19 20:31 Pain Level 0 03/28/19 20:31 Intake & Output 03/27/19 03/28/19 03/28/19 23:59 11:59 23:59 Intake Total 1770 / 1770 670 / 1410 740 / 1410 Balance 1770 / 1770 670 / 1410 740 / 1410 Weight 103 kg 102.8 kg Intake: IV 1070 / 1070 670 / 770 100 / 770 Oral 700 / 700 640 / 640 Other: Urine Appearance Clear Comment pt voiding ad jong in toilet at this time; urine not assessed. pt denies GI/ issues Voiding Methods Toilet Toilet Toilet Laboratory Results WBC 5.68 k/cumm (4.4-10.8) D 03/28/19 06:30 RBC 3.74 m/cumm (4.50-6.00) L 03/28/19 06:30 Hgb 12.1 g/dL (13.5-17.5) L 03/28/19 06:30 Hct 36.7 % (40.0-50.0) L 03/28/19 06:30 MCV 98.1 fL (80-95) H 03/28/19 06:30 MCH 32.4 pg (27.0-33.0) 03/28/19 06:30 MCHC 33.0 g/dL (32.0-36.0) 03/28/19 06:30 RDW 12.3 % (11.8-14.1) 03/28/19 06:30 Plt Count 301 x1000/uL (130-400) 03/28/19 06:30 MPV 10.4 fL (8.0-11.0) 03/28/19 06:30 Immature Gran % 0.4 03/28/19 06:30 Neutrophils % 59.7 03/28/19 06:30 Lymphocytes % 23.9 03/28/19 06:30 Monocytes % 11.1 03/28/19 06:30 Eosinophils % 4.4 03/28/19 06:30 Basophils % 0.5 03/28/19 06:30 Absolute Neutrophils 3.39 k/cumm (1.2-6.7) 03/28/19 06:30 Absolute Lymphocytes 1.36 k/cumm (1.2-3.4) 03/28/19 06:30 Absolute Monocytes 0.63 k/cumm (0.11-0.7) 03/28/19 06:30 Absolute Eosinophils 0.25 k/cumm (0.0-0.7) 03/28/19 06:30 Absolute Basophils 0.03 k/cumm (0.0-0.2) 03/28/19 06:30 ESR 88 mm/hr (1-20) H 03/28/19 06:30 Sodium 140 mmol/L (136-145) 03/28/19 06:30 Potassium 4.1 mmol/L (3.5-5.1) D 03/28/19 06:30 Chloride 106 mmol/L (98-107) 03/28/19 06:30 Carbon Dioxide 26.1 mmol/L (21.0-32.0) 03/28/19 06:30 Anion Gap 7.9 mmol/L (3-11) 03/28/19 06:30 BUN 7 mg/dL (7-18) 03/28/19 06:30 Creatinine 0.75 mg/dL (0.70-1.30) 03/28/19 06:30 Estimated GFR/1.73 m2 >= 60.00 (mL/min/1.73m2) 03/28/19 06:30 Glucose 95 mg/dL (74-106) 03/28/19 06:30 Calcium 8.7 mg/dL (8.5-10.1) 03/28/19 06:30 Magnesium 2.0 mg/dL (1.8-2.4) 03/27/19 20:20 Total Bilirubin 0.7 mg/dL (0.2-1.0) 03/27/19 16:25 AST 22 U/L (15-37) 03/27/19 16:25 ALT 39 U/L (16-63) 03/27/19 16:25 Alkaline Phosphatase 62 U/L (46-116) 03/27/19 16:25 Creatine Kinase 90 U/L (39-308) 03/28/19 06:30 C-Reactive Protein 8.77 mg/dL (0.0-0.3) H 03/28/19 06:30 Total Protein 7.9 g/dL (6.4-8.2) 03/27/19 16:25 Albumin 3.5 g/dL (3.4-5.0) 03/27/19 16:25 Procalcitonin < 0.1 ng/mL 03/28/19 06:30
--- NOTE | 2019-03-28 22:37 | NUR.NOTE ---
Nursing Note: 2025 Patient informed nurse that he felt that the cellulitus was spreading. Reddened area did appear to have spread some onto arm and away from the elbow. RN marked/encircled the cellulitis with a skin marker. Then notified rn hemodialysis charge Susan who notified Dr. Berkowitz as well. VSS.
[2019-03-29] MEDS: Normal Saline 500 ML 30 ML IV (00:22)
[2019-03-29] MEDS: Normal Saline Flush 10 ML SYR (01:36)
[2019-03-29] MEDS: Normal Saline Flush 10 ML SYR IVP ×6 (04:07→23:56)
[2019-03-29 07:06] LABS: Abs Immature Grans 0.02 k/cumm (0.0-0.09); Absolute Basophil Count 0.03 k/cumm (0.0-0.2); Absolute Eosinophil Count 0.24 k/cumm (0.0-0.7); Absolute Lymphocyte Count 1.62 k/cumm (1.2-3.4); Absolute Monocyte Count 0.75 k/cumm (0.11-0.7); Absolute Neutrophil Count 3.11 k/cumm (1.2-6.7); Basophils % 0.5; Eosinophils % 4.2; HGB 12.9 g/dL (13.5-17.5); Immature Grans % 0.3; Lymphocytes % 28.1; Mean Corp. HGB Concentration 33.1 g/dL (32.0-36.0); Mean Corpuscular Volume 96.8 fL (80-95); Mean Platelet Volume 10.9 fL (8.0-11.0); Neutrophils % 53.9; Platelet Count 339 x1000/uL (130-400); RBC 4.03 m/cumm (4.50-6.00); RBC Distribution Width 12.1 % (11.8-14.1); White Blood Cell Count 5.77 k/cumm (4.4-10.8)
[2019-03-29 07:30] VITALS: BP 126/81; PULSE 74; RESP 18; TEMP 36.5; O2SAT 99
[2019-03-29 07:34] LABS: Anion Gap 8.6 mmol/L (3-11); BUN 9 mg/dL (7-18); C-Reactive Protein 5.45 mg/dL (0.0-0.3); CO2 28.4 mmol/L (21.0-32.0); CREATININE 0.82 mg/dL (0.70-1.30); Calcium 9.3 mg/dL (8.5-10.1); Chloride 105 mmol/L (98-107); Creatine Kinase 79 U/L (39-308); Glucose 103 mg/dL (74-106); Potassium 4.1 mmol/L (3.5-5.1); Sodium 142 mmol/L (136-145)
[2019-03-29] MEDS: Ketorolac 30 MG/ML VIAL IVP (07:57)
[2019-03-29] MEDS: Lactobacillus Acidophilus CAP 1 CAP PO (07:58)
[2019-03-29] MEDS: Multivitamin TAB 1 TAB PO (07:58)
[2019-03-29] MEDS: hydroCHLOROthiazide 12.5 MG TAB PO (07:58)
[2019-03-29] MEDS: amLODIPine 5 MG TAB PO (07:58)
[2019-03-29] MEDS: Losartan 50 MG TAB PO (07:58)
[2019-03-29] MEDS: Potassium Chloride 20 MEQ TABCR PO (07:58)
[2019-03-29] MEDS: Acamprosate 333 MG TABCR PO ×3 (07:58→19:41)
--- NOTE | 2019-03-29 15:14 | W.PM.PROGNOT ---
Date of Service Date of service: 03/29/19 Time of Service: 15:14 Assessment and Plan Assessment and plan (1) Infected olecranon bursa: Status: Acute Assessment and plan: RUE; Improving on oxacillin. Wound Cx with staph aureus, sensitivities are pending. Failed outpatient therapy. Seen by orthopedic - no surgical intervention is anticipated. Continue oxacillin. There is a 50% chance the patient could be discharged home tomorrow on dicloxacillin. Qualifiers: Laterality: right Qualified Code(s): M71.121 - Other infective bursitis, right elbow (2) Cellulitis of right elbow: Status: Acute Assessment and plan: As above (3) Hypertension: Status: Chronic Assessment and plan: Continue amlodipine, HCTZ, losartan Qualifiers: Hypertension type: essential hypertension Qualified Code(s): I10 - Essential (primary) hypertension (4) Impaired fasting glucose: Status: Chronic Assessment and plan: Continue carb consistent heart healthy diet (5) DVT prophylaxis: Status: Acute Assessment and plan: lovenox (6) Discharge planning issues: Status: Acute Assessment and plan: full code Subjective Subjective Patient reports: no new complaints Interval history since last seen: Mr Tillman states his arm feels better. The pain is well controlled with toradol. The arm/elbow are less red/swollen. He denies dizziness, chest pain, shortness of breath, nausea, vomiting. Exam Narrative Exam Narrative: General: Very pleasant middle-aged male, A&Ox3, sitting comfortably in a chair, does not look toxic HEENT: EOMI, MMM Heart: RRR, no m/r/g Lungs: CTAB Abdomen: soft, nontender, nondistended Extremities: no e/c/c BLE's; RUE with significantly less erythematous/edematous elbow with an opening/whitish drainage. Objective Objective Clinical Data: Abnormal lab results 03/29/19 03/29/19 Range/Units 06:18 06:18 RBC 4.03 L (4.50-6.00) m/cumm Hgb 12.9 L (13.5-17.5) g/dL Hct 39.0 L (40.0-50.0) % MCV 96.8 H (80-95) fL Absolute Monocytes 0.75 H (0.11-0.7) k/cumm C-Reactive Protein 5.45 H (0.0-0.3) mg/dL Vital Signs Temperature 36.5 C 03/29/19 07:30 Temperature Source Tympanic 03/29/19 07:30 Pulse 74 03/29/19 07:30 Pulse Rhythm Regular 03/29/19 13:40 Respiratory Rate 18 03/29/19 07:30 Respiratory Effort Non-Labored 03/29/19 13:40 Respiratory Depth Normal 03/29/19 13:40 Respiratory Pattern Normal 03/29/19 13:40 Blood Pressure 126/81 03/29/19 07:30 Blood Pressure Position Sitting 03/27/19 15:41 Pulse Oximetry 99 03/29/19 07:30 Oxygen Delivery Method Room Air 03/29/19 07:30 Oxygen Flow Rate 0 03/29/19 07:30 Pain Level 1 03/29/19 08:57 Intake & Output 03/28/19 03/29/19 03/29/19 23:59 11:59 23:59 Intake Total 1290 / 1960 1635.5 / 1685.5 50 / 1685.5 Balance 1290 / 1960 1635.5 / 1685.5 50 / 1685.5 Intake: IV 150 / 820 435.5 / 485.5 50 / 485.5 Oral 1140 / 1140 1200 / 1200 Other: Comment ad jogn, patient denies any gi/gu issues, urine not measured VOID X 3 INDEPENDENTLY DURING NOC Stool Size Moderate Stool Characteristics Liquid Voiding Methods Toilet Toilet Laboratory Results WBC 5.77 k/cumm (4.4-10.8) 03/29/19 06:18 RBC 4.03 m/cumm (4.50-6.00) L 03/29/19 06:18 Hgb 12.9 g/dL (13.5-17.5) L 03/29/19 06:18 Hct 39.0 % (40.0-50.0) L 03/29/19 06:18 MCV 96.8 fL (80-95) H 03/29/19 06:18 MCH 32.0 pg (27.0-33.0) 03/29/19 06:18 MCHC 33.1 g/dL (32.0-36.0) 03/29/19 06:18 RDW 12.1 % (11.8-14.1) 03/29/19 06:18 Plt Count 339 x1000/uL (130-400) 03/29/19 06:18 MPV 10.9 fL (8.0-11.0) 03/29/19 06:18 Immature Gran % 0.3 03/29/19 06:18 Neutrophils % 53.9 03/29/19 06:18 Lymphocytes % 28.1 03/29/19 06:18 Monocytes % 13.0 03/29/19 06:18 Eosinophils % 4.2 03/29/19 06:18 Basophils % 0.5 03/29/19 06:18 Absolute Neutrophils 3.11 k/cumm (1.2-6.7) 03/29/19 06:18 Absolute Lymphocytes 1.62 k/cumm (1.2-3.4) 03/29/19 06:18 Absolute Monocytes 0.75 k/cumm (0.11-0.7) H 03/29/19 06:18 Absolute Eosinophils 0.24 k/cumm (0.0-0.7) 03/29/19 06:18 Absolute Basophils 0.03 k/cumm (0.0-0.2) 03/29/19 06:18 ESR 88 mm/hr (1-20) H 03/28/19 06:30 Sodium 142 mmol/L (136-145) 03/29/19 06:18 Potassium 4.1 mmol/L (3.5-5.1) 03/29/19 06:18 Chloride 105 mmol/L (98-107) 03/29/19 06:18 Carbon Dioxide 28.4 mmol/L (21.0-32.0) 03/29/19 06:18 Anion Gap 8.6 mmol/L (3-11) 03/29/19 06:18 BUN 9 mg/dL (7-18) 03/29/19 06:18 Creatinine 0.82 mg/dL (0.70-1.30) 03/29/19 06:18 Estimated GFR/1.73 m2 >= 60.00 (mL/min/1.73m2) 03/29/19 06:18 Glucose 103 mg/dL (74-106) 03/29/19 06:18 Calcium 9.3 mg/dL (8.5-10.1) 03/29/19 06:18 Magnesium 2.0 mg/dL (1.8-2.4) 03/29/19 06:18 Total Bilirubin 0.7 mg/dL (0.2-1.0) 03/27/19 16:25 AST 22 U/L (15-37) 03/27/19 16:25 ALT 39 U/L (16-63) 03/27/19 16:25 Alkaline Phosphatase 62 U/L (46-116) 03/27/19 16:25 Creatine Kinase 79 U/L (39-308) 03/29/19 06:18 C-Reactive Protein 5.45 mg/dL (0.0-0.3) H 03/29/19 06:18 Total Protein 7.9 g/dL (6.4-8.2) 03/27/19 16:25 Albumin 3.5 g/dL (3.4-5.0) 03/27/19 16:25 Procalcitonin < 0.1 ng/mL 03/28/19 06:30
[2019-03-29 15:15] VITALS: BP 126/78; PULSE 80; RESP 16; TEMP 36.6; O2SAT 98
[2019-03-29] MEDS: Enoxaparin 40 MG/0.4 ML SYR SC (16:28)
--- NOTE | 2019-03-29 16:51 | CMPROGNOTE_ITS ---
- If Service Date Differs Date of service: 03/29/19 Time of Service: 16:51 Care Management Progress Note S/O: Ochoa was sitting up in a chair visiting with his Melissa when CM met with them. He was very pleasant and readily engaged in conversation. He stated that his elbow is much better but the doctor is waiting until antibiotic susceptibilities can be determined . The organism has been identified as staphylococcus aureus but the susceptibilities are still pending. This was confirmed with the laboratory. Ochoa and Melissa do not feel any services will be needed at discharge as Melissa is a nurse. Ochoa has remained active and has been ambulating independently in the hallways. A: Ochoa is a 59 year old gentleman admitted to [facility] on 03/27/19 with cellulitis of the right elbow. P:Per MD: awaiting antibiotic susceptibilities to determine frequency and duration of needed antibiotics to treat cellulitis. He will likely be discharged home with no new services. CM will continue to follow and support patient, family and discharge planning considerations.
[2019-03-30] VITALS: BP 124/79; PULSE 76; RESP 16; TEMP 36.8; O2SAT 95
[2019-03-30] MEDS: Normal Saline Flush 10 ML SYR IVP ×5 (04:08→23:39)
[2019-03-30 07:28] LABS: BUN 10 mg/dL (7-18); C-Reactive Protein 2.86 mg/dL (0.0-0.3); CREATININE 0.93 mg/dL (0.70-1.30); Calcium 9.3 mg/dL (8.5-10.1); Chloride 103 mmol/L (98-107); Glucose 97 mg/dL (74-106); Magnesium 1.9 mg/dL (1.8-2.4); Potassium 4.2 mmol/L (3.5-5.1); Sodium 141 mmol/L (136-145)
[2019-03-30] MEDS: amLODIPine 5 MG TAB PO (07:46)
[2019-03-30] MEDS: Losartan 50 MG TAB PO (07:47)
[2019-03-30] MEDS: hydroCHLOROthiazide 12.5 MG TAB PO (07:47)
[2019-03-30] MEDS: Multivitamin TAB 1 TAB PO (07:47)
[2019-03-30] MEDS: Acamprosate 333 MG TABCR PO ×3 (07:47→19:49)
[2019-03-30] MEDS: Potassium Chloride 20 MEQ TABCR PO (07:47)
[2019-03-30 07:58] VITALS: BP 143/86; PULSE 76; RESP 20; TEMP 36.9; O2SAT 99
--- NOTE | 2019-03-30 11:42 | W.PM.PROGNOT ---
Date of Service Date of service: 03/30/19 Time of Service: 11:42 Assessment and Plan Assessment and plan (1) Infected olecranon bursa: Status: Acute Assessment and plan: RUE, due to MSSA, Continues to improve on oxacillin. Failed outpatient therapy. Seen by orthopedic - no surgical intervention is anticipated. Continue oxacillin for today. Plan for discharge tomorrow with oxacillin. Qualifiers: Laterality: right Qualified Code(s): M71.121 - Other infective bursitis, right elbow (2) Cellulitis of right elbow: Status: Acute Assessment and plan: As above (3) Hypertension: Status: Chronic Assessment and plan: Continue amlodipine, HCTZ, losartan Qualifiers: Hypertension type: essential hypertension Qualified Code(s): I10 - Essential (primary) hypertension (4) Impaired fasting glucose: Status: Chronic Assessment and plan: Continue carb consistent heart healthy diet (5) DVT prophylaxis: Status: Acute Assessment and plan: lovenox (6) Discharge planning issues: Status: Acute Assessment and plan: full code Subjective Subjective Patient reports: no new complaints Interval history since last seen: Mr Tillman is feeling better - he denies any pain, dizziness, shortness of breath, nausea. He is still having diarrhea - it has not changed. His elbow is getting better. He would like to go home tomorrow. Exam Narrative Exam Narrative: General: Very pleasant middle-aged male, A&Ox3, seen ambulating in the room HEENT: EOMI, MMM Heart: RRR, no m/r/g Lungs: CTAB Abdomen: soft, nondistended Extremities: no e BLE's; RUE with even less erythema/edema elbow with an opening/whitish drainage. There is still induration medially. Objective Objective Clinical Data: Abnormal lab results 03/30/19 Range/Units 06:50 C-Reactive Protein 2.86 H (0.0-0.3) mg/dL Vital Signs Temperature 36.9 C 03/30/19 07:58 Temperature Source Temporal Artery Scan 03/30/19 07:58 Pulse 76 03/30/19 07:58 Pulse Rhythm Regular 03/30/19 08:00 Respiratory Rate 20 03/30/19 07:58 Respiratory Effort Non-Labored 03/30/19 08:00 Respiratory Depth Normal 03/30/19 08:00 Respiratory Pattern Normal 03/30/19 08:00 Blood Pressure 143/86 H 03/30/19 07:58 Blood Pressure Position Sitting 03/27/19 15:41 Pulse Oximetry 99 03/30/19 07:58 Oxygen Delivery Method Room Air 03/30/19 07:58 Oxygen Flow Rate 0 03/30/19 07:58 Pain Level 0 03/29/19 18:01 Comment 03/30/19 07:58 Intake & Output 03/29/19 03/29/19 03/30/19 11:59 23:59 11:59 Intake Total 1635.5 / 2045.5 410 / 2045.5 670 / 670 Balance 1635.5 / 2045.5 410 / 2045.5 670 / 670 Intake: IV 435.5 / 605.5 170 / 605.5 170 / 170 Oral 1200 / 1440 240 / 1440 500 / 500 Other: Urine Color Yellow Urine Appearance Clear Clear Comment VOID X 3 INDEPENDENTLY DURING NOC pt voiding indpendently. Pt reports no problems voiding, using BR independently Stool Size Moderate Small Stool Characteristics Liquid Formed Voiding Methods Toilet Toilet Laboratory Results WBC 5.77 k/cumm (4.4-10.8) 03/29/19 06:18 RBC 4.03 m/cumm (4.50-6.00) L 03/29/19 06:18 Hgb 12.9 g/dL (13.5-17.5) L 03/29/19 06:18 Hct 39.0 % (40.0-50.0) L 03/29/19 06:18 MCV 96.8 fL (80-95) H 03/29/19 06:18 MCH 32.0 pg (27.0-33.0) 03/29/19 06:18 MCHC 33.1 g/dL (32.0-36.0) 03/29/19 06:18 RDW 12.1 % (11.8-14.1) 03/29/19 06:18 Plt Count 339 x1000/uL (130-400) 03/29/19 06:18 MPV 10.9 fL (8.0-11.0) 03/29/19 06:18 Immature Gran % 0.3 03/29/19 06:18 Neutrophils % 53.9 03/29/19 06:18 Lymphocytes % 28.1 03/29/19 06:18 Monocytes % 13.0 03/29/19 06:18 Eosinophils % 4.2 03/29/19 06:18 Basophils % 0.5 03/29/19 06:18 Absolute Neutrophils 3.11 k/cumm (1.2-6.7) 03/29/19 06:18 Absolute Lymphocytes 1.62 k/cumm (1.2-3.4) 03/29/19 06:18 Absolute Monocytes 0.75 k/cumm (0.11-0.7) H 03/29/19 06:18 Absolute Eosinophils 0.24 k/cumm (0.0-0.7) 03/29/19 06:18 Absolute Basophils 0.03 k/cumm (0.0-0.2) 03/29/19 06:18 ESR 88 mm/hr (1-20) H 03/28/19 06:30 Sodium 141 mmol/L (136-145) 03/30/19 06:50 Potassium 4.2 mmol/L (3.5-5.1) 03/30/19 06:50 Chloride 103 mmol/L (98-107) 03/30/19 06:50 Carbon Dioxide 27.0 mmol/L (21.0-32.0) 03/30/19 06:50 Anion Gap 11.0 mmol/L (3-11) 03/30/19 06:50 BUN 10 mg/dL (7-18) 03/30/19 06:50 Creatinine 0.93 mg/dL (0.70-1.30) 03/30/19 06:50 Estimated GFR/1.73 m2 >= 60.00 (mL/min/1.73m2) 03/30/19 06:50 Glucose 97 mg/dL (74-106) 03/30/19 06:50 Calcium 9.3 mg/dL (8.5-10.1) 03/30/19 06:50 Magnesium 1.9 mg/dL (1.8-2.4) 03/30/19 06:50 Total Bilirubin 0.7 mg/dL (0.2-1.0) 03/27/19 16:25 AST 22 U/L (15-37) 03/27/19 16:25 ALT 39 U/L (16-63) 03/27/19 16:25 Alkaline Phosphatase 62 U/L (46-116) 03/27/19 16:25 Creatine Kinase 79 U/L (39-308) 03/29/19 06:18 C-Reactive Protein 2.86 mg/dL (0.0-0.3) H 03/30/19 06:50 Total Protein 7.9 g/dL (6.4-8.2) 03/27/19 16:25 Albumin 3.5 g/dL (3.4-5.0) 03/27/19 16:25 Procalcitonin < 0.1 ng/mL 03/28/19 06:30
--- NOTE | 2019-03-30 14:19 | CMPROGNOTE_ITS ---
- If Service Date Differs Date of service: 03/30/19 Time of Service: 14:19 Care Management Progress Note S/O: Ochoa was sitting up in a chair visiting with his Melissa when CM met with them. He was very pleasant and readily engaged in conversation. Ochoa had been concerned about his insurance coverage since he has BC/BS which requires prior authorizations for any changes in status. CM contacted [employer] and [employer] and was able to determine that the prior auth had been completed and that his stay is approved until 04/02/19. Dr. Mcguire told him he would likely be discharged tomorrow since his elbow is significantly better. Ochoa was pleased to have the information verified. A: Ochoa is a 59 year old gentleman admitted to [facility] on 03/27/19 with cellulitis of the right elbow. P: Antibiotic susceptibilities are now available and the discharge antibiotic plan can be formulated. Ochoa will likely be discharged home with no new services. CM will continue to follow and support patient, family and discharge planning considerations.
[2019-03-30 15:40] VITALS: BP 131/72; PULSE 78; RESP 20; TEMP 37; O2SAT 97
[2019-03-30] MEDS: Enoxaparin 40 MG/0.4 ML SYR SC (19:49)
[2019-03-30 23:51] VITALS: BP 139/81; PULSE 65; RESP 16; TEMP 36.2; O2SAT 98
[2019-03-31] MEDS: Normal Saline Flush 10 ML SYR IVP ×2 (04:29→08:20)
[2019-03-31 07:10] LABS: Abs Immature Grans 0.04 k/cumm (0.0-0.09); Absolute Basophil Count 0.03 k/cumm (0.0-0.2); Absolute Eosinophil Count 0.28 k/cumm (0.0-0.7); Absolute Lymphocyte Count 1.82 k/cumm (1.2-3.4); Absolute Monocyte Count 0.82 k/cumm (0.11-0.7); Absolute Neutrophil Count 5.17 k/cumm (1.2-6.7); Basophils % 0.4; Eosinophils % 3.4; HCT 40.2 % (40.0-50.0); HGB 13.3 g/dL (13.5-17.5); Immature Grans % 0.5; Lymphocytes % 22.3; Mean Corp. HGB Concentration 33.1 g/dL (32.0-36.0); Mean Corpuscular Hemoglobin 32.1 pg (27.0-33.0); Mean Corpuscular Volume 97.1 fL (80-95); Neutrophils % 63.4; Platelet Count 407 x1000/uL (130-400); RBC 4.14 m/cumm (4.50-6.00); RBC Distribution Width 12.3 % (11.8-14.1); White Blood Cell Count 8.16 k/cumm (4.4-10.8)
[2019-03-31 07:40] LABS: BUN 10 mg/dL (7-18); CREATININE 0.92 mg/dL (0.70-1.30); Calcium 9.4 mg/dL (8.5-10.1); Chloride 101 mmol/L (98-107); Glucose 97 mg/dL (74-106); Magnesium 1.9 mg/dL (1.8-2.4); Sodium 138 mmol/L (136-145)
[2019-03-31 07:45] VITALS: BP 142/91; PULSE 77; RESP 20; TEMP 37; O2SAT 97
[2019-03-31] MEDS: Acamprosate 333 MG TABCR PO (08:20)
[2019-03-31] MEDS: amLODIPine 5 MG TAB PO (08:20)
[2019-03-31] MEDS: hydroCHLOROthiazide 12.5 MG TAB PO (08:20)
[2019-03-31] MEDS: Potassium Chloride 20 MEQ TABCR PO (08:20)
[2019-03-31] MEDS: Losartan 50 MG TAB PO (08:20)
[2019-03-31] MEDS: Multivitamin TAB 1 TAB PO (08:21)
--- NOTE | 2019-03-31 10:03 | W.PM.DS.N ---
Date of service: 03/31/19 Time of Service: 10:18 DS: Diagnosis Discharge Diagnosis (1) Infected olecranon bursa: Status: Acute (2) Cellulitis of right elbow: Status: Acute (3) Hypertension: Status: Chronic (4) Impaired fasting glucose: Status: Chronic Discharge Plan Disposition Patient Disposition: HOME Condition: Good Discharge Details Chief Complaint: Cellulitis Clinical Impression: Olecranon bursitis, right elbow, Cellulitis of right elbow Reason For Visit: CELLULITIS RT ELBOW Admit Date/Time: 03/28/19 16:17 Admit Provider: Reece Bagley Attending Provider: Velvet Mcguire Primary Care Provider: Severo King ED Provider: Isai Field Hospital Course Hospital Course: Mr Tillman is a 59 year old male with PMHx of HTN, OA, impaired fasting glucose, h/o alcohol abuse on acamprosate, who was admitted to [facility] hospitalist service on on 03/27/19 after failing outpatient treatment for septic bursitis of his right elbow. In the hospital, he was treated with intravenous oxacillin with significant improvement of symptoms. He was evaluated by Dr Landeros who felt that the patient would not require surgery. It needs to be noted that the official read of the elbow XR states that there is a short lucency in the cortex of the radial head on lateral view, c/w nondisplaced fracture. Dr Landeros disagreed with the radiology read and felt that there was no fracture and no bony involvement. Ultimately, the patient improved clinically without surgery because his bursitis was draining itself through an opening in the skin. His wound culture grew MSSA. The patient is medically stable for discharge home today to complete 10 more days of antibiotics (dicloxacillin), with follow up with his PCP and orthopedics, as well as blood work in 1 week. Care for patient as well as time spent on completion of paperwork on the day of discharge took less than 30 minutes. Home Meds and New Rx's Prescriptions: New dicloxacillin 500 mg capsule 500 mg PO Q6H Qty: 40 RF: 0 Lactobacillus acidophilus 1.5 mg (250 million cell) capsule 1,000 mmu cells PO TID Qty: 90 RF: 0 Continued losartan-hydrochlorothiazide 50-12.5 mg tablet 1 tab PO DAILY RF: 0 multivitamin [Daily Multi-Vitamin] 1 EACH tablet 1 ea PO DAILY RF: 0 amlodipine 5 MG tablet 5 mg PO DAILY RF: 0 epinephrine 0.3 MG/0.3 ML auto-injector 0.3 mg IM PRN PRNRF: 0 acamprosate 333 mg tablet,delayed release (DR/EC) 333 mg PO TID RF: 0 ibuprofen [IBU-200] 200 mg Tablet 400 mg PO Q6H PRNRF: 0 Discontinued clindamycin HCl 150 mg Capsule 450 mg PO TID RF: 0 Discharge Instructions Instructions: Dicloxacillin (By mouth), Cellulitis (DC), Elbow Bursitis (GEN) Additional Instructions: Finish your antibiotics as prescribed. Return to the hospital with any fever, bleeding, chest pain, or shortness of breath. Stand Alone Forms: Nursing Discharge Form Referrals: Simon Landeros MD [ [facility] STAFF PHYSICIAN] - (follow up septic bursitis) Severo King [Primary Care Provider] - 04/04/19 8:50 am Activity:: Activity as Tolerated Equipment/Supplies:: No Equipment Needed Diet:: Low Sodium Discharge Orders Discharge Orders: Discharge Order (Routine); Ordered 03/31/19 Ordered By: Velvet Mcguire Other Ambulatory Orders: Complete Blood Count w/Diff (Routine) Timeframe: 1 Week Location: Determined by Patient Ordered By: Velvet Mcguire C-Reactive Protein (Routine) Timeframe: 1 Week Location: Determined by Patient Ordered By: Velvet Mcguire DS: Summary Status at Discharge Functional status at discharge: independent ambulation Overall status at discharge: patient is progressing back to baseline Mental Status: mental status grossly normal Speech and Movement: speech and movement normal Mood: congruent mood Affect: normal affect Exam Narrative Exam Narrative: General: Very pleasant middle-aged male, A&Ox3, seen ambulating in the room HEENT: EOMI, MMM Heart: RRR, no m/r/g Lungs: CTAB Abdomen: soft, nondistended Extremities: no e BLE's; RUE decreased erythema/edema elbow with an opening/whitish drainage. Psych Mental Status: mental status grossly normal Speech and Movement: speech and movement normal Mood: congruent mood Affect: normal affect DS: Data Vitals/I&O Vitals and I&O: Vital Signs Temperature 37 C 03/31/19 07:45 Temperature Source Tympanic 03/31/19 07:45 Pulse 77 03/31/19 07:45 Pulse Rhythm Regular 03/31/19 07:46 Respiratory Rate 20 03/31/19 07:45 Respiratory Effort Non-Labored 03/31/19 07:46 Respiratory Depth Normal 03/31/19 07:46 Respiratory Pattern Normal 03/31/19 07:46 Blood Pressure 142/91 H 03/31/19 07:45 Blood Pressure Position Sitting 03/27/19 15:41 Pulse Oximetry 97 03/31/19 07:45 Oxygen Delivery Method Room Air 03/31/19 07:45 Oxygen Flow Rate 0 03/31/19 07:45 Pain Level 0 03/31/19 07:45 Comment 03/30/19 07:58 Intake & Output 03/30/19 03/30/19 03/31/19 11:59 23:59 11:59 Intake Total 670 / 1460 790 / 1460 640 / 640 Balance 670 / 1460 790 / 1460 640 / 640 Intake: IV 170 / 330 160 / 330 100 / 100 Oral 500 / 1130 630 / 1130 540 / 540 Other: Urine Appearance Clear Clear Clear Comment Pt reports no problems voiding, using BR independently Data Completed and Pending Completed studies during hospitalization [Text1]: XR R elbow: Short lucency in the cortex of the radial head seen on the lateral view. This may represent a nondisplaced fracture. Follow-up recommended. *This was discussed with Dr Landeros, who disagreed with radiology read and felt that there was no fracture or bone involvement. Labs on day of discharge: Labs from last 24 hours 03/31/19 03/31/19 06:51 06:51 WBC 8.16 RBC 4.14 L Hgb 13.3 L Hct 40.2 MCV 97.1 H MCH 32.1 MCHC 33.1 RDW 12.3 Plt Count 407 H MPV 10.0 Immature Gran % 0.5 Neutrophils % 63.4 Lymphocytes % 22.3 Monocytes % 10.0 Eosinophils % 3.4 Basophils % 0.4 Absolute Neutrophils 5.17 Absolute Lymphocytes 1.82 Absolute Monocytes 0.82 H Absolute Eosinophils 0.28 Absolute Basophils 0.03 Sodium 138 Potassium 4.0 Chloride 101 Carbon Dioxide 27.0 Anion Gap 10.0 BUN 10 Creatinine 0.92 Estimated GFR/1.73 m2 >= 60.00 Glucose 97 Calcium 9.4 Magnesium 1.9 Preliminary micro results at discharge 03/27/19 16:50 Blood Culture - Preliminary Blood NO GROWTH 72 HOURS 03/27/19 16:25 Blood Culture - Preliminary Blood NO GROWTH 72 HOURS [facility] Medical History (Updated 03/28/19 @ 16:18 by Velvet Mcguire MD) Hypertension (Chronic) Iliotibial band syndrome, left leg (Acute) Osteoarthritis (Chronic) Trochanteric bursitis, left hip (Acute) Injection: 07/25/2018 Surgical History (Updated 03/27/19 @ 21:03 by Reece Bagley) H/O arthroscopy of left knee (Acute ~2015) torn meniscus; [facility] History of total left hip arthroplasty (Acute ~02/2017) [facility], [facility] Family History (Updated 03/27/19 @ 21:09 by Reece Bagley) Father Heart disease probable RI; no autopsy done Mother Breast cancer Sister Chronic kidney disease Social History (Updated 03/27/19 @ 21:07 by Reece Bagley) Smoking/Tobacco Use Status: Former Tobacco Use Quit Date: 04/05/94 Tobacco: How many years used: 20 Alcohol Intake: former Year quit: 2018 Drug use: Never Household members: spouse Number of Children: 2 Education Level: college Details: BA current occupation: public administration; [employer] What is your relationship status?: Panel score (0-1 are the most socially isolated patients): 1 Do you feel safe at home: Yes Do you feel safe in your relationship?: Yes
--- NOTE | 2019-03-31 13:48 | PDOC.CMDIS ---
- If Service Date Differs Date of service: 03/31/19 Time of Service: 13:49 LACE Index Scoring Tool - Questions: Length of Stay (in days): 4 - 6 Acuity (Admit via E.D.?): Yes E.D. Visits: 1 - Answers: Total Score: 8 Risk of Readmission: Low Risk Care Management Discharge Reason for Hospitalization: Cellulitis RT Elbow Discharge Plan: Ochoa will return home with no additional services at this time. KIRSTEN called his pharmacy to ensure the abx were available and also found that the copay is only $10. Ochoa will follow up with his PCP, as recommended. He will be driven home via private vehicle by family. Patient/Family Education Needs: Review discharge instructions regarding medications, discussion of self care needs including Ask Me Three
--- NOTE | 2019-03-31 15:35 | CHAPLAIN ---
Rito was expecting to be discharged this afternoon after being here for a few days. He and his were headed to their camp on [facility] for the weekend.
== END 2019-03-31 11:11 | disposition home or self-care (01) | DRG 603 ==
LOC: ER 17:47 → MS 17:58
PROVIDERS: Admitting Provider Internal Medicine; Emergency Provider Student in an Organized Health Care Education/Training Program; PCP Family Medicine; Visit Provider Internal Medicine
DX: L03.113 Cellulitis of right upper limb (principal); M71.121 Other infective bursitis, right elbow; B95.61 Methicillin susceptible Staphylococcus aureus infection as the cause of diseases classified elsewhere; I10 Essential (primary) hypertension; W19.XXXS Unspecified fall, sequela; R73.01 Impaired fasting glucose
CPT/HCPCS: 36415; 80048; 80053; 82550; 84145; 85652; 87040; 87077; 96361; 96365; 99219; 99231; 99232; 99238; 99285; J1650; 73080; 83735; 85025; 86140; 87070; 87186; 87205; 99225; 99284; G0378; J1885; J2700; J3490

== ENCOUNTER 2019-04-11 09:41 | Outpatient (CLI) | payer BC, SELFPAY ==
[2019-04-11 09:19] LABS: Abs Immature Grans 0.01 k/cumm (0.0-0.09); Absolute Basophil Count 0.03 k/cumm (0.0-0.2); Absolute Eosinophil Count 0.22 k/cumm (0.0-0.7); Absolute Lymphocyte Count 1.46 k/cumm (1.2-3.4); Absolute Monocyte Count 0.56 k/cumm (0.11-0.7); Absolute Neutrophil Count 3.24 k/cumm (1.2-6.7); Basophils % 0.5; HCT 43.3 % (40.0-50.0); HGB 14.3 g/dL (13.5-17.5); Immature Grans % 0.2 %; Lymphocytes % 26.4; Mean Corpuscular Hemoglobin 32.1 pg (27.0-33.0); Mean Corpuscular Volume 97.1 fL (80-95); Mean Platelet Volume 10.5 fL (8.0-11.0); Monocytes % 10.1; Neutrophils % 58.8; Platelet Count 348 x1000/uL (130-400); RBC 4.46 m/cumm (4.50-6.00); RBC Distribution Width 12.7 % (11.8-14.1); White Blood Cell Count 5.52 k/cumm (4.4-10.8)
[2019-04-11 14:58] LABS: C-Reactive Protein 0.37 mg/dL (0.0-0.3)
== END 2019-04-11 10:01 ==
PROVIDERS: PCP Family Medicine; Visit Provider Internal Medicine
DX: M71.121 Other infective bursitis, right elbow (principal)
CPT/HCPCS: 36415; 85025; 86140

== ENCOUNTER 2019-06-12 07:09 | Day surgery (SDC) | payer BC, SELFPAY ==
--- NOTE | 2019-06-12 06:43 | W.COLOREPORT ---
Date of service: 06/12/19 Time of Service: 08:30 Colonoscopy Report Date of procedure: 06/12/19 Pre-op diagnosis general: Colon Cancer Screening Post-op diagnosis procedure note: other (polyp and diverticulosis) Procedure: Colonoscopy with polypectomy Surgeon: Ciarra Muñoz Anesthesia proc note operative: other (General/ ASA 2/Tonja Luu CRNA ) Estimated blood loss (mL): 3 Pathology: other (Transverse polyp) Complications: None Disposition: same day Indications: 59 y/o male with history of HTN presents for colonoscopy screening pre-op. His last screening was in 2008, which was unremarkable. He denies a family history of colon cancer. He denies any changes in bowel habits, stating that due to recent antibiotics he had been experiencing diarrhea which has been resolving. Denies bloody or black tarry stools, abdominal pain or constipation. He denies constitutional symptoms. Risks, benefits and complications have been reviewed. Complications include but are not limited to bleeding, pain, perforation, missed small lesion/polyp, sore throat, aspiration and adverse reaction to the medications. Questions were entertained and answered to their satisfaction and they wished to proceed. No guarantees were given or implied. Prep: Miralax/Dulcolax Procedure Start Time: :30 Procedure End Time: :01 Retraction Time: 21 minutes Findings: One polyp in the Trasnverse colon Mild diverticulosis Procedure Description: After informed consent was obtained the patient was taken to the procedure room and placed in a left decubitous position. Monitors were applied and a time out was done. The patients name, date of , procedure, allergies to medications and metal in their body was reviewed. The patient was then sedated. Once sedated and comfortable a rectal exam was done. External exam was normal. Internal exam revealed a normal sphincter tone and no palpable masses. The prostate felt smooth. The scope was then introduced and retro-flexed. No internal hemorrhoids were identified. The scope was then advanced to the cecum without difficulty. The colon was tortuous. The TI and appendiceal orifice were identified. The prep was adequate. The scope was then slowly retracted over 21 minutes back into the rectum. Polyps were removed with cold forceps in the transverse colon. There was mild diverticulosis of the descending and sigmoid colon. The scope was removed and the patient was woken up and taken back to Same day surgery in stable condition. The patient tolerated the procedure well and there were no immediate complications. Follow up: The patient should follow up in 3-5 years unless they develop changes in bowel habits or other new gastrointestinal complaints.
--- NOTE | 2019-06-12 06:44 | W.PM.DSUDISC ---
Discharge Plan Disposition Patient Disposition: HOME Condition: Good Discharge Details Reason For Visit: Colon Cancer Screening Attending Provider: Ciarra Muñoz Primary Care Provider: Severo King Home Meds and New Rx's Prescriptions: Continued losartan-hydrochlorothiazide 50-12.5 mg tablet 1 tab PO DAILY RF: 0 multivitamin [Daily Multi-Vitamin] 1 EACH tablet 1 ea PO DAILY RF: 0 amlodipine 5 MG tablet 5 mg PO DAILY RF: 0 epinephrine 0.3 MG/0.3 ML auto-injector 0.3 mg IM PRN PRNRF: 0 acamprosate 333 mg tablet,delayed release (DR/EC) 333 mg PO TID RF: 0 ibuprofen [IBU-200] 200 mg Tablet 400 mg PO Q6H PRNRF: 0 Lactobacillus acidophilus 1.5 mg (250 million cell) capsule 1,000 mmu cells PO TID Qty: 90 RF: 0 Discontinued polyethylene glycol 3350 17 gram/dose powder 238 g PO ONCE Qty: 238 RF: 0 bisacodyl [Dulcolax (bisacodyl)] 5 mg tablet,delayed release (DR/EC) 5 mg PO ONCE Qty: 4 RF: 0 Discharge Instructions Instructions: Diverticulosis (DC), Colorectal Polyps (GEN) Additional Instructions: Findings: One polyp Diverticulosis Follow up: 3-5 years Please call if you develop: fevers >101.5 Nausea or Vomiting Abdominal pain that is not transient DAY SURGERY UNIT POST ENDOSCOPY INSTRUCTIONS 1. Because there will be medication in your system for the next 24 hours, you may feel a little sleepy. Your coordination will be affected. Therefore: a. Do not drive or operate dangerous equipment for 24 hours. b. Do not drink alcohol beverages for 24 hours (not even beer). c. Plan to go home and rest for the day. 2. Generally there are no restrictions on your activity after a day or so has gone by, but you may feel a bit fatigued for a few days. 3 After you arrive home you may have a light meal and return to a normal diet as you can tolerate it without feeling sick to your stomach. 4. After surgery, you may feel pain or discomfort. This should be only transient, but if it persists please contact your doctor. 5. If there are any questions regarding the findings of your procedure, please feel free to contact your doctor. 6. If you are unable to contact your doctor with a problem, contact the [facility] at [phone]. 2. Continue all your regular medications unless directed otherwise. I understand the above instructions and have no questions. Signature of Patient or Responsible Adult Escort Date/Time Name of Responsible Adult Escort Signature of Nurse Date/Time Activity:: Activity as Tolerated Diet:: High Fiber diet Discharge Orders Discharge Orders: Discharge Order (Routine); Ordered 06/12/19 Ordered By: Ciarra Muñoz DS: Diagnosis Discharge Diagnosis (1) Diverticulosis: Status: Acute
[2019-06-12 07:18] VITALS: BP 126/79; PULSE 79; RESP 16; TEMP 36.8; O2SAT 96
[2019-06-12] MEDS: Lactated Ringers 1,000 ML 80 ML IV (07:42)
--- NOTE | 2019-06-12 08:52 | BOWEL_PTH ---
PATIENT: Ochoa Tillman LOC: [facility] U#:[id number] AGE/SX: 59/M ROOM: RE06/12/[address]: Ciarra Muñoz MD : 1960 BED: DIS: 06/12/2019 SPEC #: [id number] RECD: 06/12/19 12:34 STATUS: ASHLEIGH REQ #: [id number] MARA: 06/12/19 08:[address]: Ciarra Muñoz DEPT: Surgical Specimen RECD BY: Mirta Hernandez ENTERED: 06/12/19 12:34 SP TYPE: Bowel OTHR DR: Severo King Tissues: 1 - BIOPSY BOWEL Procedures: GROSS AND MICRO LEVEL 4 Comments: [id number]
[2019-06-12 09:38] VITALS: BP 122/74; PULSE 76; RESP 16; TEMP 36.5; O2SAT 99
== END 2019-06-12 09:45 | disposition home or self-care (01) ==
LOC: SUR 07:09
PROVIDERS: PCP Family Medicine; Visit Provider Surgery
PROC: 0DJD8ZZ Inspection of Lower Intestinal Tract, Via Natural or Artificial Opening Endoscopic (ICD-10-PCS; CPT 45378; principal; 2019-06-12 08:15)
DX: Z12.11 Encounter for screening for malignant neoplasm of colon (principal); D12.3 Benign neoplasm of transverse colon; K57.30 Diverticulosis of large intestine without perforation or abscess without bleeding; K63.89 Other specified diseases of intestine; I10 Essential (primary) hypertension
CPT/HCPCS: 45380; 88305; J2704

== ENCOUNTER 2020-03-05 08:05 | Outpatient (REF) | payer BC, SELFPAY ==
[2020-03-05 19:36] LABS: ALT 72 U/L (16-63); AST 41 U/L (15-37); Albumin 3.9 g/dL (3.4-5.0); Alkaline Phosphatase 65 U/L (46-116); Anion Gap 9.4 mmol/L (3-11); BUN 15 mg/dL (7-18); Bilirubin, Total 0.7 mg/dL (0.2-1.0); CO2 26.6 mmol/L (21.0-32.0); CREATININE 1.09 mg/dL (0.70-1.30); Calcium 9.3 mg/dL (8.5-10.1); Calculated LDL 116 mg/dL (<100); Chloride 104 mmol/L (98-107); Cholesterol 196 mg/dL (<200); Glucose 106 mg/dL (74-106); HDL Cholesterol 61 mg/dL (40-60); Potassium 4.4 mmol/L (3.5-5.1); Sodium 140 mmol/L (136-145); Total Protein 7.8 g/dL (6.4-8.2); Triglyceride 97 mg/dL (<150)
== END 2020-03-05 08:25 ==
LOC: NCHCN 08:05
PROVIDERS: PCP Family Medicine; Visit Provider Family Medicine
DX: Z00.00 Encounter for general adult medical examination without abnormal findings (principal); I10 Essential (primary) hypertension; F10.99 Alcohol use, unspecified with unspecified alcohol-induced disorder
CPT/HCPCS: 80053; 80061

== ENCOUNTER 2020-09-23 11:41 | Outpatient (REF) | payer BC, SELFPAY ==
[2020-09-23 16:19] LABS: ALT 62 U/L (16-63); AST 30 U/L (15-37); Albumin 3.8 g/dL (3.4-5.0); Alkaline Phosphatase 67 U/L (46-116); Bilirubin, Total 0.6 mg/dL (0.2-1.0); Ferritin 441 ng/mL (26-388); Total Protein 7.6 g/dL (6.4-8.2)
[2020-09-23 16:48] LABS: Bilirubin, Direct 0.3 mg/dL (0.0-0.2)
[2020-09-24 09:03] LABS: Hepatitis B Surface Ag Negative (Negative)
== END 2020-09-23 11:42 | disposition home or self-care (01) ==
LOC: NCHCN 11:41
PROVIDERS: PCP Family Medicine; Visit Provider Family Medicine
DX: R74.01 Elevation of levels of liver transaminase levels (principal)
CPT/HCPCS: 80076; 87340; 82728

== ENCOUNTER 2021-09-29 16:41 | Outpatient (REF) | payer BC, SELFPAY ==
[2021-09-29 14:35] LABS: HCT 40.8 % (40.0-50.0); HGB 13.9 g/dL (13.5-17.5); MCH 33.1 pg (27.0-33.0); MCHC 34.1 % (32.0-36.0); MCV 97 fL (80-95); MPV 11.2 fL (8.0-11.0); Platelet Count 220 10^3/uL (130-400); WBC 7.87 10^3/uL (4.4-10.8)
[2021-09-29 14:58] LABS: ALT 86 U/L (16-63); AST 56 U/L (15-37); Albumin 3.4 g/dL (3.4-5.0); Alkaline Phosphatase 69 U/L (46-116); Anion Gap 5.4 mmol/L (3-11); BUN 14 mg/dL (7-18); Bilirubin, Total 0.6 mg/dL (0.2-1.0); CO2 29.6 mmol/L (21.0-32.0); CREATININE 0.8 mg/dL (0.70-1.30); Calcium 9.2 mg/dL (8.5-10.1); Chloride 101 mmol/L (98-107); Glucose 94 mg/dL (74-106); Potassium 4.1 mmol/L (3.5-5.1); Sodium 136 mmol/L (136-145); Total Protein 7.7 g/dL (6.4-8.2)
== END 2021-09-29 16:42 | disposition home or self-care (01) ==
LOC: NCHCN 16:41
PROVIDERS: PCP Family Medicine; Visit Provider Family Medicine
DX: R74.01 Elevation of levels of liver transaminase levels (principal); I10 Essential (primary) hypertension
CPT/HCPCS: 80053; 85027

== ENCOUNTER 2022-09-30 14:07 | Outpatient (REF) | payer BC, SELFPAY ==
[2022-09-30 15:14] LABS: HCT 41.9 % (40.0-50.0); HGB 14.3 g/dL (13.5-17.5); MCH 33.6 pg (27.0-33.0); MCHC 34.1 % (32.0-36.0); MCV 99 fL (80-95); Platelet Count 225 10^3/uL (130-400); RBC 4.25 10^6/uL (4.36-5.78); RDW 12.7 % (11.8-14.1); RDW-SD 45.9 fL; WBC 6.88 10^3/uL (4.4-10.8)
[2022-09-30 15:28] LABS: ALT 73 U/L (16-63); AST 45 U/L (15-37); Albumin 3.8 g/dL (3.4-5.0); Alkaline Phosphatase 80 U/L (46-116); Anion Gap 12.1 mmol/L (3-11); BUN 13 mg/dL (7-18); Bilirubin, Total 0.7 mg/dL (0.2-1.0); CO2 26.9 mmol/L (21.0-32.0); Calcium 9.1 mg/dL (8.5-10.1); Calculated LDL 73 mg/dL (<100); Chloride 101 mmol/L (98-107); Cholesterol 145 mg/dL (<200); Estimated GFR 84.57 (mL/min/1.73m2); Glucose 105 mg/dL (74-106); HDL Cholesterol 63 mg/dL (40-60); Magnesium 1.9 mg/dL (1.8-2.4); Potassium 3.9 mmol/L (3.5-5.1); Sodium 140 mmol/L (136-145); Total Protein 7.8 g/dL (6.4-8.2); Triglyceride 45 mg/dL (<150)
[2022-09-30 15:52] LABS: Hemoglobin A1C 5.3 % (<5.7)
== END 2022-09-30 14:08 | disposition home or self-care (01) ==
LOC: NCHCN 14:07
PROVIDERS: PCP Family Medicine; Visit Provider Family Medicine
DX: Z00.00 Encounter for general adult medical examination without abnormal findings (principal); F10.99 Alcohol use, unspecified with unspecified alcohol-induced disorder; I10 Essential (primary) hypertension
CPT/HCPCS: 80053; 80061; 85027; 83036; 83735

== ENCOUNTER 2023-03-23 20:00 | Outpatient (REF) | payer OTHER, SELFPAY ==
[2023-03-23 16:16] LABS: ALT 52 U/L (16-63); AST 35 U/L (15-37); Albumin 3.7 g/dL (3.4-5.0); Alkaline Phosphatase 81 U/L (46-116); Bilirubin, Direct 0.2 mg/dL (0.0-0.2); Bilirubin, Total 0.6 mg/dL (0.2-1.0); Total Protein 7.2 g/dL (6.4-8.2)
== END 2023-03-23 20:01 | disposition home or self-care (01) ==
LOC: NCHCN 20:00
PROVIDERS: PCP Family Medicine; Visit Provider Family Medicine
DX: R74.01 Elevation of levels of liver transaminase levels (principal)
CPT/HCPCS: 80076

== ENCOUNTER 2023-09-21 15:22 | Outpatient (REF) | payer OTHER, SELFPAY ==
[2023-09-21 16:12] LABS: ALT 38 U/L (16-63); AST 25 U/L (15-37); Albumin 3.8 g/dL (3.4-5.0); Alkaline Phosphatase 69 U/L (46-116); Anion Gap 8.8 mmol/L (3-11); BUN 14 mg/dL (7-18); Bilirubin, Total 0.9 mg/dL (0.2-1.0); CO2 30.2 mmol/L (21.0-32.0); CREATININE 0.9 mg/dL (0.70-1.30); Calcium 9.1 mg/dL (8.5-10.1); Chloride 100 mmol/L (98-107); Estimated GFR 95.37 (mL/min/1.73m2); Glucose 89 mg/dL (74-106); Potassium 4.3 mmol/L (3.5-5.1); Sodium 139 mmol/L (136-145); Total Protein 7.4 g/dL (6.4-8.2)
== END 2023-09-21 15:23 | disposition home or self-care (01) ==
LOC: NCHCN 15:22
PROVIDERS: PCP Family Medicine; Visit Provider Student in an Organized Health Care Education/Training Program
DX: R74.01 Elevation of levels of liver transaminase levels (principal)
CPT/HCPCS: 80053

== ENCOUNTER 2024-10-04 19:30 | Outpatient (REF) | payer MEDICARE, SELFPAY ==
[2024-10-04 15:44] LABS: Abs Immature Grans 0.01 10^3/uL (0.0-0.06); HCT 42.0 % (40.0-50.0); HGB 14.3 g/dL (13.5-17.5); Immature Grans % 0.2 %; MCH 33.3 pg (27.0-33.0); MCHC 34.0 % (32.0-36.0); MCV 98 fL (80-95); MPV 10.6 fL (8.0-11.0); Platelet Count 251 10^3/uL (130-400); RBC 4.29 10^6/uL (4.36-5.78); RDW 12.9 % (11.8-14.1); RDW-SD 46.5 fL; WBC 5.49 10^3/uL (4.4-10.8)
[2024-10-04 16:01] LABS: ALT 52 U/L (16-63); AST 27 U/L (15-37); Albumin 4.1 g/dL (3.4-5.0); Alkaline Phosphatase 71 U/L (46-116); Anion Gap 8.7 mmol/L (3-11); BUN 10 mg/dL (7-18); Bilirubin, Total 0.8 mg/dL (0.2-1.0); CO2 28.3 mmol/L (21.0-32.0); Calcium 9.5 mg/dL (8.5-10.1); Calculated LDL 98 mg/dL (<100); Chloride 102 mmol/L (98-107); Cholesterol 179 mg/dL (<200); Estimated GFR 98.21 (mL/min/1.73m2); Glucose 103 mg/dL (74-106); HDL Cholesterol 64 mg/dL (>or=40); Magnesium 2.0 mg/dL (1.8-2.4); Potassium 4.1 mmol/L (3.5-5.1); Sodium 139 mmol/L (136-145); Total Protein 7.8 g/dL (6.4-8.2); Triglyceride 88 mg/dL (<150)
[2024-10-05 20:31] LABS: Vitamin B12 551 pg/mL (193-986)
== END 2024-10-04 19:31 | disposition home or self-care (01) ==
LOC: NCHCN 19:30
PROVIDERS: PCP Family Medicine; Visit Provider Student in an Organized Health Care Education/Training Program
DX: I10 Essential (primary) hypertension (principal); E78.5 Hyperlipidemia, unspecified
CPT/HCPCS: 80053; 80061; 82607; 82746; 83735; 85025

== ENCOUNTER 2024-10-11 03:22 | Outpatient (CLI) | payer MEDICARE, OTHER, SELFPAY ==
--- NOTE | 2024-10-11 | DI.US_ITS ---
Exam(s) US AAA SCREENING EXAM: US AAA SCREENING CLINICAL HISTORY: Screening for cardiovascular disorders Z13.6 former smoker COMPARISON: No exams were available for comparison FINDINGS: Abdominal Aorta: Proximal: 2 cm Mid: 1.9 cm Distal: 1.9 cm Iliacs: Right: 1.2 cm Left: 1.4 cm IMPRESSION: No evidence of abdominal aortic aneurysm. DATA REPOSITORY:
== END 2024-10-11 03:42 ==
LOC: DI 03:23
PROVIDERS: PCP Family Medicine; Visit Provider Student in an Organized Health Care Education/Training Program
DX: Z13.6 Encounter for screening for cardiovascular disorders (principal)
CPT/HCPCS: 76706

== ENCOUNTER 2024-10-16 10:56 | Outpatient (CLI) | payer MEDICARE, OTHER, SELFPAY ==
[2024-10-16 08:56] LABS: Folate > 20.0 ng/mL (8.6-20.0)
== END 2024-10-16 10:57 | disposition home or self-care (01) ==
LOC: LBO 10:58
PROVIDERS: PCP Family Medicine; Visit Provider Student in an Organized Health Care Education/Training Program
DX: R71.8 Other abnormality of red blood cells (principal)
CPT/HCPCS: 36415; 82746

== ENCOUNTER 2025-03-22 09:59 | Outpatient (REF) | payer MEDICARE, OTHER, SELFPAY ==
[2025-03-22 16:55] LABS: ALT 41 U/L (10-49); AST 38 U/L (<34); Albumin 4.4 g/dL (3.2-5.0); Alkaline Phosphatase 66 U/L (46-116); Anion Gap 10.3 mmol/L (3-11); BUN 15 mg/dL (9-23); Bilirubin, Total 0.8 mg/dL (0.2-1.2); CO2 28.7 mmol/L (20.0-31.0); Calcium 9.7 mg/dL (8.3-10.6); Chloride 103 mmol/L (98-107); Glucose 90 mg/dL (74-106); Potassium 4.5 mmol/L (3.5-5.1); Sodium 142 mmol/L (136-145); Total Protein 7.8 g/dL (5.7-8.2)
[2025-03-22 16:57] LABS: Folate > 24.0 ng/mL (>5.38)
[2025-03-22 17:40] LABS: Abs Immature Grans 0.03 10^3/uL (0.0-0.06); HCT 44.7 % (40.0-50.0); HGB 14.7 g/dL (13.5-17.5); Immature Grans % 0.5 %; MCH 32.7 pg (27.0-33.0); MCHC 32.9 % (32.0-36.0); MCV 99 fL (80-95); MPV 10.9 fL (8.0-11.0); Platelet Count 242 10^3/uL (130-400); RBC 4.50 10^6/uL (4.36-5.78); RDW 13.0 % (11.8-14.1); RDW-SD 47.7 fL; WBC 5.52 10^3/uL (4.4-10.8)
== END 2025-03-22 10:00 | disposition home or self-care (01) ==
LOC: NCHCN 09:59
PROVIDERS: PCP Student in an Organized Health Care Education/Training Program; Visit Provider Student in an Organized Health Care Education/Training Program
DX: D75.89 Other specified diseases of blood and blood-forming organs (principal); F10.20 Alcohol dependence, uncomplicated
CPT/HCPCS: 80053; 82746; 85025